=== PATIENT | female | born 1930 | race Caucasian/White ===

== ENCOUNTER 2017-10-24 06:43 | Outpatient (CLI) | payer MEDICARE, OTHER | END 2017-10-24 06:44 | disposition critical access hospital (66) | LOC: EMS 06:43 | PROVIDERS: ATTEND Surgery | DX: M54.2 Cervicalgia (principal) | CPT/HCPCS: A0425; A0429 ==

== ENCOUNTER 2017-10-24 07:06 | Emergency (ER) | payer MEDICARE, OTHER ==
[2017-10-24 07:15] VITALS: BP 161/138
[2017-10-24] MEDS ORDERED: SODIUM CHLORIDE 0.9% 1,000 ML IV ONE (07:31)
--- NOTE | 2017-10-24 07:35 | ED Physician Documentation ---
PD HPI Fall - Stated complaint Stated Complaint: GLF - Chief complaint Chief Complaint: General - History obtained from History obtained from: Patient, Family (daughter), EMS - History of Present Illness Mechanism of injury: Lost balance Fall distance: Sitting position Where injury occurred: Home Timing - onset: Last night Injury(ies) location: Face, Right Upper Extremity, Right Lower Extremity Associated symptoms: No: LOC - Additional information Additional information: The patient is a 87-year-old female who arrives via ambulance after being found by a passerby this morning lying on the ground. She had walked to her mailbox last night using her cane, and fell when walking back to the house. She was unable to get up and spent the night laying in the bushes. She complains of pain in her right leg. She states that she was not able to move her right arm earlier in the night. She denies headache, chest pain, shortness of breath, abdominal pain. She has a history of imbalance, with previous history of falls. She and her , who has dementia, were scheduled to move into an adult care facility, [facility]. Review of Systems Constitutional: denies: Fever Eyes: denies: Loss of vision Ears: denies: Tinnitus/ringing Nose: denies: Congestion Throat: denies: Sore throat Cardiac: denies: Chest pain / pressure Respiratory: denies: Dyspnea, Cough GI: denies: Abdominal Pain, Nausea, Vomiting : reports: Incontinent. denies: Dysuria Skin: reports: Abrasion (s) Musculoskeletal: reports: Extremity pain (right leg). denies: Back pain Neurologic: reports: Generalized weakness. denies: Focal weakness, Numbness PD PAST MEDICAL HISTORY - Past Medical History Cardiovascular: Murmur Respiratory: None Neuro: Other (Normo-pressure hydrocephalus, S/P FURNITURE SHAMPOOER shunt.) Endocrine/Autoimmune: None GI: None : None HEENT: None Psych: None Musculoskeletal: Osteoarthritis Derm: None - Past Surgical History Past Surgical History: Yes General: Cholecystectomy, Appendectomy Ortho: Knee replacement Neuro: FURNITURE SHAMPOOER shunt - Present Medications Home Medications: Ambulatory Orders Medication Instructions Recorded Confirmed Aspirin 81 mg PO 08/02/12 08/02/12 Atenolol mg PO 08/02/12 08/02/12 Clopidogrel [Plavix] 75 mg PO DAILY 08/02/12 08/02/12 Lovastatin mg PO 08/02/12 08/02/12 Tolterodine [Detrol LA] mg PO ONCE 08/02/12 08/02/12 Clotrimazole 45 gm TP BID #1 cream..g. 10/24/17 - Allergies Allergies/Adverse Reactions: Allergies Allergy/AdvReac Type Severity Reaction Status Date / Time acetaminophen [From Percocet] Allergy Intermediate Nausea Verified 12/09/12 13: 08 oxycodone HCl * Allergy Intermediate Nausea Verified 12/09/12 13:08 [From Percocet] - Living Situation Living Situation: reports: With spouse/s.o. Living Arrangement: reports: At home - Social History Does the pt smoke?: No Smoking Status: Never smoker Does the pt drink ETOH?: Yes Does the pt have substance abuse?: No - Immunizations Immunizations are current?: No Immunizations: TDAP >10years/unknown - POLST Patient has POLST: Yes PD ED PE NORMAL - Vitals Vital signs reviewed: Yes (hypertensive) - General General: Alert and oriented X 3, Well developed/nourished, Other (Appears disheveled) - HEENT HEENT: PERRL, EOMI, Other (Right periorbital ecchymosis, dry buccal mucosa.) - Neck Neck: No bony TTP, Other (Mild discomfort with cervical range of motion.) - Cardiac Cardiac: RRR, Other (II/ systolic murmur.) - Respiratory Respiratory: No respiratory distress, Clear bilaterally - Abdomen Abdomen: Soft, Non tender - Back Back: No CVA TTP, No spinal TTP - Extremities Extremities: No edema, No calf tenderness / cord, Other (superficial ecchymosis of both knees, lower legs, extensor aspects of forearms, with abrasion right elbow posteriorly.) - Neuro Neuro: Alert and oriented X 3, No motor deficit, No sensory deficit, Other ( Hearing deficit; Mental confusion/forgetfulness for recent events.) Results - Vitals Vitals: Oxygen O2 Source Room air - Labs Labs: Laboratory Tests 10/24/17 10/24/17 10/24/17 07:40 07:40 07:40 WBC 15.3 H RBC 4.46 Hgb 13.7 Hct 40.3 MCV 90.2 MCH 30.7 MCHC 34.1 RDW 14.2 Plt Count 188 MPV 8.7 Neut # (Auto) 14.0 H Lymph # (Auto) 0.7 L [place] # (Auto) 0.5 Eos # (Auto) 0.0 Baso # (Auto) 0.0 Absolute Nucleated RBC 0.00 Nucleated RBC % 0.0 Sodium 136 Potassium 3.9 Chloride 102 Carbon Dioxide 22 Anion Gap 12.0 BUN 31 H Creatinine 1.3 H Estimated GFR (MDRD) 39 L Glucose 120 H Lactic Acid Calcium 8.8 Total Bilirubin 1.2 H AST 33 ALT 18 Alkaline Phosphatase 58 Troponin I 0.19 Total Protein 7.5 Albumin 4.2 Globulin 3.3 Albumin/Globulin Ratio 1.3 Lipase 38 Urine Color Urine Clarity Urine pH Ur Specific [place] Urine Protein Urine Glucose (UA) Urine Ketones Urine Occult Blood Urine Nitrite Urine Bilirubin Urine Urobilinogen Ur Leukocyte Esterase Urine RBC Urine WBC Ur Squamous Epith Cells Urine Bacteria Ur Microscopic Review Urine Culture Comments 10/24/17 10/24/17 07:40 08:30 WBC RBC Hgb Hct MCV MCH MCHC RDW Plt Count MPV Neut # (Auto) Lymph # (Auto) Bibb # (Auto) Eos # (Auto) Baso # (Auto) Absolute Nucleated RBC Nucleated RBC % Sodium Potassium Chloride Carbon Dioxide Anion Gap BUN Creatinine Estimated GFR (MDRD) Glucose Lactic Acid 1.6 Calcium Total Bilirubin AST ALT Alkaline Phosphatase Troponin I Total Protein Albumin Globulin Albumin/Globulin Ratio Lipase Urine Color YELLOW Urine Clarity SL. CLOUDY Urine pH 6.5 Ur Specific [place] 1.025 Urine Protein 100 H Urine Glucose (UA) NEGATIVE Urine Ketones TRACE Urine Occult Blood MODERATE H Urine Nitrite POSITIVE H Urine Bilirubin NEGATIVE Urine Urobilinogen 0.2 (NORMAL) Ur Leukocyte Esterase NEGATIVE Urine RBC 0-5 Urine WBC 4-5 Ur Squamous Epith Cells MOD Squamous H Urine Bacteria Many H Ur Microscopic Review INDICATED Urine Culture Comments NOT INDICATED - Rads (name of study) Head CT w/o Radiology: Prelim report reviewed, EMP read contemporaneously, See rad report ( No acute intracranial abnormality. Stable FURNITURE SHAMPOOER shunt with interval decrease in ventriculomegaly.) C-spine CT Radiology: Prelim report reviewed, EMP read contemporaneously, See rad report ( Negative.) PD MEDICAL DECISION MAKING - ED course Complexity details: reviewed old records, reviewed results, re-evaluated patient , considered differential, d/w patient, d/w family ED course: The patient's presentation is most consistent with fall caused by incoordination when walking outside in the dark.. Injuries include contusion to the right side of the face, the right upper extremity, and both lower extremities. There are no fractures or intracranial abnormalities evident on CT scan or physical examination. The underlying cause of the patient's fall appears to be most likely due to incoordination rather than acute neurologic or cardiac event. Her laboratory evaluation reveals an elevated white count of 15.3, but there is no other clinical evidence to suggest infectious etiology, other than intertriginous dermatitis. The elevated white count is likely a result of soft tissue trauma. Treatment in the emergency department included administration of normal saline 1 L IV. Chlortrimazole topical cream was applied to the fungal dermatitis in the groin. She is being discharged with prescription for Chlortrimazole cream. I discussed with her and her daughter the results of her evaluation, symptomatic treatment and outpatient follow-up, as well as potentially worrisome signs or symptoms that should prompt reevaluation in the emergency department. She is being discharged to the adult care facility, accompanied by her daughter. She demonstrated ability to ambulate with the assistance of a walker, without apparent extremity pain with weightbearing. - Sepsis Event Vital Signs: Oxygen O2 Source Room air Departure - Departure Disposition: 01 Home, Self Care Clinical Impression: Multiple contusions, Dehydration, Incoordination, Fungal dermatitis Fall Qualifiers: Encounter type: initial encounter Qualified Code(s): W19.XXXA - Unspecified fall, initial encounter Condition: Stable Instructions: ED Contusion Soft Tissue, ED Dehydration Follow-Up: Fredi Cohen MD [Primary Care Provider] - Prescriptions: Clotrimazole 45 gm TP BID #1 cream..g. Comments: Drink plenty of fluids. Apply antifungal cream to the groin area twice daily. You can use Tylenol if needed for discomfort. Follow up with your primary physician within 1-2 weeks. Call to schedule an appointment. Return to the emergency department if you develop markedly increasing pain, increasing difficulty walking, or otherwise worsening symptoms. Discharge Date/Time: 10/24/17 10:58
[2017-10-24 07:49] LABS: BASOPHILS % (AUTO) 0.2 %; EOSINOPHILS % (AUTO) 0.1 %; HGB - HEMOGLOBIN 13.7 g/dL (12.0-16.0); LYMPHOCYTES # (AUTO) 0.7 10^3/uL (1.5-3.5); LYMPHOCYTES % (AUTO) 4.8 %; MEAN CORPUSCULAR HEMOGLOBIN 30.7 pg (27.0-31.0); MEAN CORPUSCULAR HGB CONC 34.1 g/dL (32.0-36.0); MEAN CORPUSCULAR VOLUME 90.2 fL (81.0-99.0); MEAN PLATELET VOLUME 8.7 fL (7.9-10.8); MONOCYTES # (AUTO) 0.5 10^3/uL (0.0-1.0); MONOCYTES % (AUTO) 3.3 %; NEUTROPHILS % (AUTO) 91.6 %; PLT - PLATELET COUNT 188 10^3/uL (130-450); RED BLOOD COUNT 4.46 10^6/uL (4.20-5.40); RED CELL DISTRIBUTION WIDTH 14.2 % (12.0-15.0); WHITE BLOOD COUNT 15.3 x10^3/uL (4.8-10.8)
[2017-10-24 08:05] LABS: ALBUMIN 4.2 g/dL (3.2-5.5); ALBUMIN/GLOBULIN RATIO 1.3 (1.0-2.2); BILIRUBIN,TOTAL 1.2 mg/dL (0.2-1.0); CALCIUM 8.8 mg/dL (8.5-10.3); CREATININE 1.3 mg/dL (0.4-1.0); TOTAL PROTEIN 7.5 g/dL (6.7-8.2)
[2017-10-24 08:36] LABS: BILIRUBIN,URINE NEGATIVE (NEGATIVE); GLUCOSE, URINE (UA) NEGATIVE (NEGATIVE); KETONES,URINE (UA) TRACE mg/dL (NEGATIVE); LEUKOCYTE ESTERASE, URINE NEGATIVE (NEGATIVE); NITRITE,URINE POSITIVE (NEGATIVE); OCCULT BLOOD,URINE MODERATE (NEGATIVE); PH,URINE 6.5 PH (5.0-7.5); PROTEIN,URINE 100 mg/dL (NEGATIVE); UROBILINOGEN,URINE 0.2 (NORMAL) E.U./dL (NORMAL)
[2017-10-24 08:43] LABS: CLARITY,URINE SL. CLOUDY (CLEAR)
[2017-10-24 08:44] LABS: BACTERIA,URINE Many /HPF (None Seen); RBC,URINE 0-5 /HPF (0-5); SQUAMOUS EPITHELIAL CELL,UR MOD Squamous (<= Few)
--- NOTE | 2017-10-24 09:04 | CT Report ---
Reason: Fall with head injury Procedure Date: 10/24/2017 Accession Number: [id number] / [id number] Procedure: CT - Head W/O CPT Code: FULL RESULT: EXAM: CT HEAD WITHOUT CONTRAST CT SCAN OF THE CERVICAL SPINE WITHOUT CONTRAST. EXAM DATE: 10/24/2017 08:03 AM. CLINICAL HISTORY: Fall with head injury, neck pain. COMPARISON: Noncontrast CT head 08/04/2012. Noncontrast CT cervical spine 08/02/2012. TECHNIQUE: Noncontrast axial sections through the head and cervical spine. Reformats: Sagittal and coronal of the head, coronal and sagittal of the cervical spine. In accordance with CT protocol optimization, one or more of the following dose reduction techniques were utilized for this exam: automated exposure control, adjustment of mA and/or KV based on patient size, or use of iterative reconstructive technique. FINDINGS CT HEAD: Parenchyma: No intraparenchymal hemorrhage. No evidence of mass, midline shift, or CT findings of infarction. Sanchez-white differentiation is distinct. Extraaxial Spaces: Normal for age. No subdural or epidural collections identified. Ventricles: Decreased ventriculomegaly compared to 2013 with stable appearance of the BIOCHEMICAL ENGINEER shunt. Sinuses and orbits: Imaged paranasal sinuses, orbits, and mastoids show no significant abnormality. Bones: No evidence of fracture or calvarial defect. Stable bifrontal craniotomy changes, remote. Other: Soft tissue trauma to the right periorbital region extracranially. FINDINGS CT CERVICAL SPINE: Alignment: Normal. No scoliosis or spondylolisthesis. Bones: No fracture or bone lesion. Atlantooccipital relationship is preserved. Interspace Levels/Facets: C1-C2: Mild to moderate degenerative changes. C2-C3: Mild to moderate degenerative changes. C3-C4: Advanced degenerative changes including complete loss of joint space and osteophyte formation. C4-C5: Disk/osteophyte complex formation and complete loss of joint space height. C5-C6: Moderate degenerative changes. C6-C7: Near-complete loss of joint space height with disk/osteophyte complex formation. C7-T1: Unremarkable. Spinal Canal: Atraumatic. Musculature: Atraumatic. Other: The paravertebral and prevertebral soft tissues are unremarkable. The lung apices are clear. IMPRESSION: Head CT: No acute intracranial abnormality. Stable BIOCHEMICAL ENGINEER shunt with interval decrease in ventriculomegaly. Extracranial soft tissue swelling. Cervical Spine CT: Negative. RADIA
--- NOTE | 2017-10-24 09:04 | CT Report ---
Reason: Fall with head injury, neck pain. Procedure Date: 10/24/2017 Accession Number: [id number] / [id number] Procedure: CT - Cervical Spine W/O CPT Code: FULL RESULT: EXAM: CT HEAD WITHOUT CONTRAST CT SCAN OF THE CERVICAL SPINE WITHOUT CONTRAST. EXAM DATE: 10/24/2017 08:03 AM. CLINICAL HISTORY: Fall with head injury, neck pain. COMPARISON: Noncontrast CT head 08/04/2012. Noncontrast CT cervical spine 08/02/2012. TECHNIQUE: Noncontrast axial sections through the head and cervical spine. Reformats: Sagittal and coronal of the head, coronal and sagittal of the cervical spine. In accordance with CT protocol optimization, one or more of the following dose reduction techniques were utilized for this exam: automated exposure control, adjustment of mA and/or KV based on patient size, or use of iterative reconstructive technique. FINDINGS CT HEAD: Parenchyma: No intraparenchymal hemorrhage. No evidence of mass, midline shift, or CT findings of infarction. Sanchez-white differentiation is distinct. Extraaxial Spaces: Normal for age. No subdural or epidural collections identified. Ventricles: Decreased ventriculomegaly compared to 2012 with stable appearance of the EQUIPMENT ASSOCIATE shunt. Sinuses and orbits: Imaged paranasal sinuses, orbits, and mastoids show no significant abnormality. Bones: No evidence of fracture or calvarial defect. Stable bifrontal craniotomy changes, remote. Other: Soft tissue trauma to the right periorbital region extracranially. FINDINGS CT CERVICAL SPINE: Alignment: Normal. No scoliosis or spondylolisthesis. Bones: No fracture or bone lesion. Atlantooccipital relationship is preserved. Interspace Levels/Facets: C1-C2: Mild to moderate degenerative changes. C2-C3: Mild to moderate degenerative changes. C3-C4: Advanced degenerative changes including complete loss of joint space and osteophyte formation. C4-C5: Disk/osteophyte complex formation and complete loss of joint space height. C5-C6: Moderate degenerative changes. C6-C7: Near-complete loss of joint space height with disk/osteophyte complex formation. C7-T1: Unremarkable. Spinal Canal: Atraumatic. Musculature: Atraumatic. Other: The paravertebral and prevertebral soft tissues are unremarkable. The lung apices are clear. IMPRESSION: Head CT: No acute intracranial abnormality. Stable EQUIPMENT ASSOCIATE shunt with interval decrease in ventriculomegaly. Extracranial soft tissue swelling. Cervical Spine CT: Negative. RADIA
[2017-10-24] MEDS ORDERED: CLOTRIMAZOLE 1% CREAM 15 GM TUBE TOP SCH (10:00)
== END 2017-10-24 10:58 | disposition home or self-care (01) ==
LOC: EDUNIT# → ED 07:06
DX: S00.83XA Contusion of other part of head, initial encounter (principal); S40.021A Contusion of right upper arm, initial encounter; S80.12XA Contusion of left lower leg, initial encounter; S80.11XA Contusion of right lower leg, initial encounter; W18.39XA Other fall on same level, initial encounter; Z91.81 History of falling; Y93.01 Activity, walking, marching and hiking; Y92.008 Other place in unspecified non-institutional (private) residence as the place of occurrence of the external cause
CPT/HCPCS: 36415; 70450; 72125; 80053; 81001; 83605; 83690; 84484; 85025; 96360; 99283; 99284; A9270; 81003; 87086

== ENCOUNTER 2018-02-15 09:17 | Outpatient (CLI) | payer MEDICARE, OTHER | END 2018-02-15 09:18 | disposition critical access hospital (66) | LOC: EMS 09:17 | PROVIDERS: ATTEND Surgery | DX: R53.1 Weakness (principal); R47.89 Other speech disturbances | CPT/HCPCS: A0425; A0429 ==

== ENCOUNTER 2018-02-15 09:34 | Inpatient (IN) | payer MEDICARE, OTHER ==
[2018-02-15] MEDS ORDERED: SODIUM CHLORIDE 0.9% 1,000 ML IV ONE (09:51)
--- NOTE | 2018-02-15 09:54 | ED Physician Documentation ---
PD HPI FOCAL NEURO - Stated complaint Stated Complaint: STROKE - Chief complaint Chief Complaint: Neuro - History obtained from History obtained from: Patient, EMS - History of Present Illness Timing - onset: Unknown Timing - duration: Hours Time of symptom onset unknown: Time of onset unknown Severity of deficit: Severe Weakness: Face, Arm, Hand, Leg, Foot, Right Contributing factors: positive: Vascular dz, Other (PLANTING MACHINE CREWMAN shunt for NPH) Baseline status: positive: A&OX3, ambulatory, indep Similar symptoms before: Diagnosis (CVA) Recently seen: Not recently seen - Additional information Additional information: 87-year-old female who is moved into assisted living in September of this year was in her usual state of good health this past week according to her daughter. She was last seen normal last night at supper in the assisted living facility and this morning she was found on the ground not responding. She does have her eyes opened she is aphasic and does follow commands. Review of Systems Constitutional: denies: Fever Eyes: denies: Decreased vision Ears: denies: Ear pain Nose: denies: Congestion Throat: denies: Sore throat Cardiac: denies: Chest pain / pressure, Palpitations Respiratory: denies: Dyspnea, Cough GI: denies: Abdominal Pain, Nausea, Vomiting : denies: Dysuria Skin: denies: Rash Musculoskeletal: reports: Extremity swelling (left leg is swollen). denies: Neck pain, Back pain, Extremity pain Neurologic: denies: Generalized weakness, Focal weakness, Numbness PD PAST MEDICAL HISTORY - Past Medical History Cardiovascular: Murmur Respiratory: None Neuro: Other (Normo-pressure hydrocephalus, S/P PLANTING MACHINE CREWMAN shunt.) Endocrine/Autoimmune: None GI: None : None HEENT: None Psych: None Musculoskeletal: Osteoarthritis Derm: None - Past Surgical History Past Surgical History: Yes General: Cholecystectomy, Appendectomy Ortho: Knee replacement Neuro: PLANTING MACHINE CREWMAN shunt - Present Medications Home Medications: Ambulatory Orders Medication Instructions Recorded Confirmed Tolterodine [Detrol LA] 4 mg PO DAILY 08/02/12 02/15/18 Oxybutynin [Ditropan] 5 mg PO BID 02/15/18 02/15/18 RX: Furosemide 40 mg PO DAILY 02/15/18 02/15/18 RX: Lovastatin 40 mg PO QPM 02/15/18 02/15/18 - Allergies Allergies/Adverse Reactions: Allergies Allergy/AdvReac Type Severity Reaction Status Date / Time acetaminophen [From Percocet] Allergy Intermediate Nausea Verified 12/09/12 13:08 oxycodone HCl * Allergy Intermediate Nausea Verified 12/09/12 13:08 [From Percocet] - Social History Does the pt smoke?: No Smoking Status: Never smoker Does the pt drink ETOH?: Yes Does the pt have substance abuse?: No - Immunizations Immunizations are current?: No Immunizations: TDAP >10years/unknown - POLST Patient has POLST: Yes PD ED PE NORMAL - Vitals Vital signs reviewed: Yes (hypertensive ) - General General: No acute distress, Well developed/nourished, Other (alert and interactive but non-verbal. Follows commands. obvious right facial droop sparing the forehead. ) - HEENT HEENT: Atraumatic, PERRL, EOMI - Neck Neck: Supple, no meningeal sign, No bony TTP - Cardiac Cardiac: RRR, Other (2/6 holosystolic blowing murmer consistent with aortic stenosis) - Respiratory Respiratory: No respiratory distress, Clear bilaterally - Abdomen Abdomen: Soft, Non tender - Back Back: No CVA TTP, No spinal TTP - Derm Derm: Normal color, Warm and dry, No rash - Extremities Extremities: No deformity, Other (There is trace edema to the left LE without obvious erythema. There is a healing wound to the left lateral ankle ) - Neuro Neuro: Other (The patient follows commands has an obvious right facial droop sparing the forehead and she has weakness on the right side with slate cutter. She is able to hold the right leg up longer than the swollen left leg. ) Eye Opening: Spontaneous Motor: Obeys Commands Verbal: Incomprehensible GCS Score: 12 - Psych Psych: Normal mood, Normal affect NIHSS - Time Time: 09:43 - Level of Consciousness Level of consciousness: (0) Alert, Keenly responsive LOC Questions: (0) Answers both Q's correct LOC Commands: (0) Performs both correctly - Gaze Best Gaze: (0) Normal - Visual Visual: (0) No loss - Facial Palsy Facial Palsy: (2) Partial paralysis - Motor Arms (both separate) Motor Arm (right): (1) Drift Motor Arm (left): (0) No drift - Motor Legs (both separate) Motor Leg (right): (1) Drift Motor Leg (left): (1) Drift - Limb Ataxia Limb Ataxia: (1) Present in 1 limb - Sensory Sensory: (0) Normal - Best Language Best Language: (3) Mute, global aphasia - Dysarthria Dysarthria: (2) Severe dysarthria - Extinction and Inattention (formally neg Extinction and inattention: (1) Visual,tactile,auditory,spatial, or personal inattention - Total Score/Results Total Score/Result: 12 Results - Vitals Vitals: Vital Signs - 24 hr 02/15/18 02/15/18 02/15/18 09:36 10:24 11:17 Temperature 36 C L Heart Rate 96 96 99 Respiratory 14 16 19 Rate Blood Pressure 158/89 H 155/94 H 163/80 H O2 Saturation 99 100 95 02/15/18 12:40 Temperature 36.3 C L Heart Rate 98 Respiratory 16 Rate Blood Pressure 154/81 H O2 Saturation 97 Oxygen O2 Source Room air - EKG (time done) 1024 Rate: Rate (enter#) (95) Rhythm: NSR [place]: LAD Other comments: Other comments (early transition) Compare to prior EKG: Changed from prior EKG (SPT 08-02-12 rate has increased.) Computer interpretation: Agree with computer - Labs Labs: Laboratory Tests 02/15/18 02/15/18 02/15/18 09:45 09:45 09:45 WBC 16.3 H RBC 4.13 L Hgb 12.1 Hct 36.2 L MCV 87.7 MCH 29.3 MCHC 33.4 RDW 14.6 Plt Count 202 MPV 8.2 Neut # (Auto) 14.6 H Lymph # (Auto) 0.9 L [place] # (Auto) 0.7 Eos # (Auto) 0.0 Baso # (Auto) 0.1 Absolute Nucleated RBC 0.01 Nucleated RBC % 0.0 Sodium 138 Potassium 3.9 Chloride 102 Carbon Dioxide 26 Anion Gap 10.0 BUN 38 H Creatinine 1.5 H Estimated GFR (MDRD) 33 L Glucose 107 H Lactic Acid Calcium 8.9 Total Bilirubin 0.6 AST 17 ALT 14 Alkaline Phosphatase 79 Troponin I 0.85 H* Total Protein 7.5 Albumin 4.0 Globulin 3.5 Albumin/Globulin Ratio 1.1 Lipase 42 Urine Color Urine Clarity Urine pH Ur Specific [place] Urine Protein Urine Glucose (UA) Urine Ketones Urine Occult Blood Urine Nitrite Urine Bilirubin Urine Urobilinogen Ur Leukocyte Esterase Ur Microscopic Review Urine Culture Comments 02/15/18 02/15/18 02/15/18 09:58 10:10 12:23 WBC RBC Hgb Hct MCV MCH MCHC RDW Plt Count MPV Neut # (Auto) Lymph # (Auto) [place] # (Auto) Eos # (Auto) Baso # (Auto) Absolute Nucleated RBC Nucleated RBC % Sodium Potassium Chloride Carbon Dioxide Anion Gap BUN Creatinine Estimated GFR (MDRD) Glucose Lactic Acid 0.9 Calcium Total Bilirubin AST ALT Alkaline Phosphatase Troponin I 0.95 H* Total Protein Albumin Globulin Albumin/Globulin Ratio Lipase Urine Color YELLOW Urine Clarity CLEAR Urine pH 6.5 Ur Specific Ram[place] 1.015 Urine Protein NEGATIVE Urine Glucose (UA) NEGATIVE Urine Ketones NEGATIVE Urine Occult Blood NEGATIVE Urine Nitrite NEGATIVE Urine Bilirubin NEGATIVE Urine Urobilinogen 0.2 (NORMAL) Ur Leukocyte Esterase NEGATIVE Ur Microscopic Review NOT INDICATED Urine Culture Comments NOT INDICATED - Rads (name of study) CT head without Radiology: Prelim report reviewed (Impression: 1. Generalized age-related cortical atrophic changes without evidence of intracranial abnormality. If concern for infarctions persist, MRI could be obtained for additional evaluation. 2. Stable position of ventricular catheter with stable dilation of the ventricles.), EMP read indepedently, See rad report CTA head and neck Radiology: Prelim report reviewed (There is no evidence of large vessel occlusion. Please see the report for significant details.), EMP read indepedently, See rad report Procedures - IVC sono (time) 0900 Bedside IVC sono: IVC measures (cm) (0.83), Dehydration (est 1-2 liter deficit) PD MEDICAL DECISION MAKING - ED course Complexity details: reviewed old records, reviewed results, re-evaluated patient, considered differential, d/w patient, d/w family ED course: 87 y/o female with a history of aortic stenosis was found with decreased responsiveness this morning and she is transported to the hospital with receptive aphasia and weakness on the right side with dense facial palsy weak slate cutter and better strength on the right than the left on exam. She has a history of aortic stenosis and appears dehydrated on interrogation of the IVC. Saline is begun. CT of the head is without signs of hemorrhage and there is no large vessel occlusion. The patient does have some improvement with ID had IV hydration and she is able to make 3 words. She does appear to have some left neglect. She has a dense facial paresthesias and expressive a aphasia. She has an elevated troponin. A conversation with the patient's daughter indicates she does not want heroic measures to prolong life in these circumstances. She will need evaluation for swallowing and ability to feed herself. We have discussed end of life as a possible outcome and the daughter indicates she would prefer to keep her here. Departure - Departure Disposition: 66 [facility] DC/Xfer Clinical Impression: Dehydration, NSTEMI (non-ST elevated myocardial infarction) Cerebrovascular accident (CVA) Qualifiers: CVA mechanism: unspecified Qualified Code(s): I63.9 - Cerebral infarction, unspecified Condition: Poor Discharge Date/Time: 02/15/18 14:19
[2018-02-15 09:58] LABS: BASOPHILS # (AUTO) 0.1 10^3/uL (0.0-0.1); BASOPHILS % (AUTO) 0.3 %; EOSINOPHILS % (AUTO) 0.3 %; HGB - HEMOGLOBIN 12.1 g/dL (12.0-16.0); LYMPHOCYTES # (AUTO) 0.9 10^3/uL (1.5-3.5); LYMPHOCYTES % (AUTO) 5.5 %; MEAN CORPUSCULAR HEMOGLOBIN 29.3 pg (27.0-31.0); MEAN CORPUSCULAR HGB CONC 33.4 g/dL (32.0-36.0); MEAN CORPUSCULAR VOLUME 87.7 fL (81.0-99.0); MEAN PLATELET VOLUME 8.2 fL (7.9-10.8); MONOCYTES # (AUTO) 0.7 10^3/uL (0.0-1.0); MONOCYTES % (AUTO) 4.1 %; NEUTROPHILS # (AUTO) 14.6 10^3/uL (1.5-6.6); NEUTROPHILS % (AUTO) 89.8 %; PLT - PLATELET COUNT 202 10^3/uL (130-450); RED BLOOD COUNT 4.13 10^6/uL (4.20-5.40); RED CELL DISTRIBUTION WIDTH 14.6 % (12.0-15.0); WHITE BLOOD COUNT 16.3 x10^3/uL (4.8-10.8)
[2018-02-15] MEDS ORDERED: IOVERSOL 320 100 ML VIAL IVP ONE ×3 (10:02→11:52)
[2018-02-15 10:08] LABS: ALBUMIN/GLOBULIN RATIO 1.1 (1.0-2.2); BILIRUBIN,TOTAL 0.6 mg/dL (0.2-1.0); CALCIUM 8.9 mg/dL (8.5-10.3); CREATININE 1.5 mg/dL (0.4-1.0); TOTAL PROTEIN 7.5 g/dL (6.7-8.2)
[2018-02-15 10:17] LABS: BILIRUBIN,URINE NEGATIVE (NEGATIVE); GLUCOSE, URINE (UA) NEGATIVE (NEGATIVE); KETONES,URINE (UA) NEGATIVE (NEGATIVE); LEUKOCYTE ESTERASE, URINE NEGATIVE (NEGATIVE); NITRITE,URINE NEGATIVE (NEGATIVE); OCCULT BLOOD,URINE NEGATIVE (NEGATIVE); PH,URINE 6.5 PH (5.0-7.5); PROTEIN,URINE NEGATIVE (NEGATIVE); UROBILINOGEN,URINE 0.2 (NORMAL) E.U./dL (NORMAL)
[2018-02-15 10:19] LABS: CLARITY,URINE CLEAR (CLEAR)
--- NOTE | 2018-02-15 11:28 | CT Report ---
Reason: R brent/aphasia Procedure Date: 02/15/2018 Accession Number: [id number] / [id number] Procedure: CT - Head W/O CPT Code: FULL RESULT: EXAM: CT HEAD EXAM DATE: 02/15/2018 11:00 AM. CLINICAL HISTORY: R brent/aphasia. COMPARISON: 02/15/2018. TECHNIQUE: Multiaxial CT images were obtained from the foramen magnum to the vertex. Reformats: Sagittal and coronal. IV contrast: None. In accordance with CT protocol optimization, one or more of the following dose reduction techniques were utilized for this exam: automated exposure control, adjustment of mA and/or KV based on patient size, or use of iterative reconstructive technique. FINDINGS: Parenchyma: No intraparenchymal hemorrhage. No evidence of mass, midline shift, or CT findings of acute infarction. Sanchez-white differentiation is distinct. Diffuse chronic microangiopathic white matter changes are evident. Vascular calcifications in the visualized vertebral arteries and bilateral M1 segments appears unchanged compared to prior. Extraaxial Spaces: Normal for age. No subdural or epidural collections identified. Ventricles: Persistent dilation of the lateral, third, and fourth ventricles, unchanged compared to prior. For example, the third ventricle measures 17 mm width, unchanged. Ventricular dilation is somewhat out of proportion to sulcal dilation which suggests underlying normal pressure hydrocephalus. Stable position of the right parietal approach ventricular catheter. Sinuses and orbits: Imaged paranasal sinuses, orbits, and mastoids show no significant abnormality. Bones: No evidence of fracture or calvarial defect. Other: None. IMPRESSION: 1. Generalized age-related cortical atrophic changes without evidence of acute intracranial abnormality. If concern for infarction persists, MRI could be obtained for additional evaluation. 2. Stable position of ventricular catheter with stable dilation of the ventricles. [facility]
--- NOTE | 2018-02-15 12:12 | CT Report ---
Reason: right brent/aphasia Procedure Date: 02/15/2018 Accession Number: [id number] / [id number] Procedure: CT - Head Angio CPT Code: FULL RESULT: EXAM: CT ANGIOGRAM HEAD AND NECK. CT SCAN HEAD WITH CONTRAST. EXAM DATE:02/15/2018 11:00 AM. CLINICAL HISTORY:R brent/aphasia. COMPARISON:None. TECHNIQUE: Routine axial helical CTA imaging was performed from the aortic arch through the [place] of [place]. Routine axial CT imaging of the head was performed prior to and following contrast administration. Reconstructions: Routine multiplanar 3D MIP reconstructions. IV contrast: 80 mL Optiray 320. NASCET Criteria are used for stenosis measurements. In accordance with CT protocol optimization, one or more of the following dose reduction techniques were utilized for this exam: automated exposure control, adjustment of mA and/or KV based on patient size, or use of iterative reconstructive technique. FINDINGS: CT scan of the head with contrast: The patient's head is rotated to the left. The imaged portions of the orbits are normal in appearance. The images are degraded by motion. There is a ventriculostomy catheter entering through a right temporal approach with the tip extending through the septum pellucidum into the body of the left lateral ventricle. The ventriculostomy catheter is in unchanged position. There is unchanged ventriculomegaly. The transverse dimension of the frontal horns of the lateral ventricles is 52 mm. There are periventricular, subcortical, and deep white matter hypodensities consistent with a mild degree of chronic small-vessel ischemia. There is a small focus of encephalomalacia of the left cerebellar hemisphere. There is normal enhancement within the brain parenchyma. There is normal enhancement within the deep venous sinuses. CTA of the neck: The visualized portions of the lung apices are clear. There is a normal configuration of the aortic arch. There are multilevel moderate degenerative changes of the cervical spine. There is beam-hardening artifact from the patient's dental amalgam and or dental hardware obscuring portions of the oropharynx, nasopharynx, oral cavity, registration representative and parotid spaces, tongue and tongue base. There is fluid density within a few right mastoid air cells. The left mastoid air cells are normally aerated. The imaged portions of the orbits are normal in appearance. The openings of the eustachian tubes are normally aerated. The torus tubarius are symmetric. The fossa of Rosenmuller are normally aerated bilaterally. The right and left parotid spaces enhance symmetrically. The registration representative spaces exhibit symmetric densities. The bilateral parapharyngeal spaces exhibit normal fat densities. The extrinsic and the intrinsic muscles of the tongue exhibit symmetric densities. There is no significant adenopathy in the level IA angel chain. There is no significant adenopathy within the bilateral level IB angel chains. The free and fixed margins of the epiglottis are normal in appearance. The preepiglottic space and paraglottic spaces exhibit normal fat densities. The aryepiglottic folds and pyriform sinuses are symmetric. The false and true cords are normal in appearance. The subglottic space is normal. There is an enhancing lesion of the left thyroid lobe measuring 17 mm in the long axis (114, 2). This could be further characterized as an outpatient with thyroid ultrasound. It could represent benign or neoplastic etiologies. There is calcific plaquing present at the origin and proximal left subclavian artery producing up to a 25% stenosis. There is soft and calcific plaquing of the right carotid bifurcation but without flow-limiting stenosis using NASCET criteria. The extracranial right internal carotid artery is without flow-limiting stenosis. There is soft and calcific plaquing of the distal left common carotid artery, carotid bulb and proximal extracranial left internal carotid artery producing multiple stenoses measuring up to 40-50% using NASCET criteria. There is soft and calcific plaquing within the right V1 segment of the right vertebral artery producing up to a 50% stenosis. There are multiple mild stenoses within the right V2 segment of the right vertebral artery measuring approximately 25%. There is abrupt tapering of the distal right V3 segment of the right vertebral artery near the junction with the right V4 segment. There is loss of enhancement within the right vertebral artery intradural segment throughout its course consistent with thrombosis. This may reflect a chronic finding. However, acute thrombosis is not excluded. Recommend correlation. A well-defined right posterior inferior cerebellar artery is not identified and may be thrombosed. There is a normal appearance of the right anterior inferior cerebellar artery. There is a small left anterior inferior cerebellar artery. There is soft and calcific plaquing of the left vertebral artery intradural segment producing multiple stenoses measuring between 25-40%. The left posterior inferior cerebellar artery exhibits multiple stenoses measuring approximately 25%. The basilar artery is without flow-limiting stenosis. The right superior cerebral artery is without flow-limiting stenosis. There is narrowing suggested at the origin of the left superior cerebral artery producing approximately 50% stenosis. The left P1 and P2 segments of the left posterior cerebral artery are without flow-limiting stenosis. The right P1 and P2 segments of the right posterior cerebral artery are without flow-limiting stenosis. There is dense calcific plaquing of the cavernous and supraclinoid intracranial internal carotid arteries bilaterally producing multiple stenoses measuring between 25-50% bilaterally. The right M1 and proximal M2 segments of the right middle cerebral artery are smooth and nonstenotic. There is calcific plaquing of the left M1 segment of the left middle cerebral artery producing a 25-50% stenosis. There is a punctate focus of calcific plaquing of branch of the left middle cerebral artery producing a 50% to slightly greater stenosis. The left A1 segment is smooth and nonstenotic. The right A1 segment is not visualized and may be severely hypoplastic versus aplastic. There is a normal appearance of the anterior communicating artery. There is narrowing within the proximal left A2 segment of the left anterior cerebral artery producing up to a 50% stenosis. There is a punctate focus of calcific plaquing of the right A2 segment producing a 25% stenosis. There is calcific plaquing of the distal right A2 segment producing between 50-70% stenosis. There is normal enhancement within the deep venous sinuses. IMPRESSION: 1. The images are degraded by motion. 2. There is an unchanged ventriculostomy catheter entering through a right temporal approach with the tip terminating in the body of the left lateral ventricle. There is unchanged ventriculomegaly. If the patient has persistent symptoms and additional imaging is desired, it could be obtained with MRI of the brain without contrast as deemed clinically appropriate. 3. There is a mild degree of chronic small-vessel ischemia. 4. There is an enhancing lesion of the left thyroid lobe measuring 17 mm in the long axis of (114, 2). This can be further characterized as an outpatient with thyroid ultrasound. It could represent benign or neoplastic etiologies. 5. There is soft and calcific plaquing of the distal left common carotid artery, carotid bulb and proximal extracranial left internal carotid artery producing multiple stenoses measuring up to 40-50% using NASCET criteria. 6. There is narrowing suggested at the origin of the left superior cerebellar artery producing approximately 50% stenosis. 7. There is calcific plaquing of the left M1 segment of the left middle cerebral artery producing a 25-50% stenosis. There is a punctate focus of calcific plaquing or evidence of branch of the left middle cerebral artery producing a 50% to slightly greater stenosis. 8. There is narrowing within the proximal left A2 segment of the left anterior cerebral artery producing up to a 50% stenosis. There is a punctate focus of calcific plaquing in the right A2 segment producing a 25% stenosis. There is calcific plaquing of the distal right A2 segment producing between 50-70% stenosis.
[2018-02-15] MEDS ORDERED: ONDANSETRON 4 MG/2 ML VIAL IVP PRN (13:53)
[2018-02-15] MEDS ORDERED: ATROPINE 1% OPHTH DROPS 2 ML SL PRN (13:53)
[2018-02-15] MEDS ORDERED: MORPHINE 2 MG/ML CARPUJECT IVP PRN (13:53)
[2018-02-15] MEDS ORDERED: PROCHLORPERAZINE 25 MG SUPP PR PRN (13:53)
[2018-02-15] MEDS ORDERED: SODIUM CHLORIDE 0.9% 1,000 ML IV SCH (14:00)
--- NOTE | 2018-02-15 15:07 | HISTORY & PHYSICAL EXAMINATION ---
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 The patient lives at [place] and according to her daughter he usually goes to bed at around 8 or 8:30 PM. This morning her and her did not show up for breakfast at 8 AM which they do every day. This alarmed the staff at the assisted living facility so they went to investigate. They found the patient on the floor in her bedroom. She was unresponsive therefore they called 911. The patient was in her pajamas and the daughter states that she usually gets into her pajamas around 8 or 830. The patient lives with her demented who could not provide any history as to what it happened to the patient nor was he even aware that she was lying on the bedroom floor. The patient's son had seen the patient the day prior to this and the patient was in her normal state of health. The son states that she was complaining of difficulty hearing but she has chronic hearing loss and has been too stubborn to get a hearing aid. He states other than that she had no other complaints and did not seem abnormal in any way. The patient is unable to provide any history secondary to aphasia. On presentation to the emergency department the patient was afebrile, tachycardic, hypertensive and saturating well on room air. On examination the patient was found to have a severe right facial droop, with right-sided weakness and left hemineglect. The patient also had aphasia. Patient underwent routine lab work which revealed a leukocytosis of 16.3, acute kidney injury with a creatinine of 1.5 and BUN of 38, an elevated troponin of 0.85 and a negative urine analysis. The patient's troponin was repeated and it was 0.95. The patient's EKG did not show any acute ischemic changes. The patient underwent a CT of her head which showed generalized age-related cortical atrophic changes without evidence of acute intracranial abnormality. The patient also underwent a CT angiogram of her head and neck which showed mild degree of small vessel ischemia with no evidence of large vessel ischemia. Given the patient's non-ST elevation DC and clinical cerebrovascular accident the emergency room physician spoke with the patient's daughter about transfer to a higher level of care. The patient's daughter expressed that the patient had lived a long and good life and that she would not want aggressive treatment for a catastrophic stroke like this. She elected to keep the patient at [facility] and make her comfort care measures. She stated if the patient did show improvement over the next 24 hours that they would consider just medical management of the patient without any interventions. The patient's daughter did not want any further imaging or labs. She did agree to physical therapy and speech therapy assessments. The patient did have slight improvement in her mentation after getting IV fluids but continued to be unable to speak, unable to follow commands and had continued right-sided weakness and right facial droop. The patient was admitted to the [facility] for further evaluation. History - Past Medical History Cardiovascular: reports: Hypertension, High cholesterol, Murmur Respiratory: reports: None Neuro: reports: Other (Normo-pressure hydrocephalus, S/P HANDKERCHIEF PRESSER shunt.) Endocrine/Autoimmune: reports: None GI: reports: None : reports: None HEENT: reports: None Psych: reports: None Musculoskeletal: reports: Osteoarthritis Derm: reports: None MRSA Hx?: No - Past Surgical History General: reports: Cholecystectomy, Appendectomy Ortho: reports: Knee replacement Neuro: reports: HANDKERCHIEF PRESSER shunt - Family & Social History Family History: Mother: , Father: , CVA/TIA, Other family: Diabetes, Type 2 (Son has diabetes) Living arrangement: Assisted living Living Situation: With spouse/s.o. Social History Notes: The patient was living at [facility] living facility with her . The patient's is demented. The patient has 4 children 3 of whom live in the area and one who lives in [place], [place]. The patient has been on [facility] for the last 50 years. She has never smoked, she does not drink alcohol and she has never used any illicit drugs. - POLST Patient has POLST: Yes POLST Status: DNR Meds/Allgy - Home Medications Home Medications: Ambulatory Orders Medication Instructions Recorded Confirmed Tolterodine [Detrol LA] 4 mg PO DAILY 08/02/12 02/15/18 Furosemide 40 mg PO DAILY 02/15/18 02/15/18 Lovastatin 40 mg PO QPM 02/15/18 02/15/18 Oxybutynin [Ditropan] 5 mg PO BID 02/15/18 02/15/18 - Allergies Allergies/Adverse Reactions: Allergies Allergy/AdvReac Type Severity Reaction Status Date / Time acetaminophen [From Percocet] Allergy Intermediate Nausea Verified 12/09/12 13:08 oxycodone HCl * Allergy Intermediate Nausea Verified 12/09/12 13:08 [From Percocet] Review of Systems - Other Findings Other Findings: The patient is unable to provide any review of systems secondary to having a aphasia. The pertinent history is provided above in the HPI. Prior Level of Functionality: Prior to presentation patient is very independent and helping to take care of her demented at an assisted living facility. Exam - Vital Signs Reviewed Vital Signs: Yes Vital Signs: Vital Signs x48h Temp Pulse Resp BP Pulse Ox 02/15/18 12:40 36.3 C L 98 16 154/81 H 97 02/15/18 11:17 99 19 163/80 H 95 02/15/18 10:24 96 16 155/94 H 100 02/15/18 09:36 36 C L 96 14 158/89 H 99 - Physical Exam General Appearance: positive: Alert, Other (Expressive aphasia, she does follow some commands, right facial droop, right sided weakness) Eyes Bilateral: positive: Normal inspection, PERRL, EOMI, No lid inflammation, Conjunctivae nml, No scleral icterus ENT: positive: ENT inspection nml, Pharynx nml, Dry mucous membranes. negative: Purulent nasal drainage, Pharyngeal erythema, Oral lesions Neck: positive: Nml inspection, Thyroid nml, No JVD, Trachea midline. negative: Thyromegaly, Lymphadenopathy (R), Lymphadenopathy (L), Stiff neck, Carotid bruit, Tracheal deviation Respiratory: positive: Chest non-tender, No respiratory distress, Breath sounds nml. negative: Wheezes, Rales, Rhonchi Cardiovascular: positive: No murmur, No gallop, Tachycardia Peripheral Pulses: positive: 2+ Abdomen: positive: Non-tender, No organomegaly, Nml bowel sounds, No distention. negative: Guarding, Rebound, Hepatomegaly Back: positive: Nml inspection. negative: CVA tenderness (R), CVA tenderness (L) Skin: positive: Color nml, No rash, Warm. negative: Cyanosis, Diaphoresis, Pall or, Skin rash Extremities: positive: Non-tender, Full ROM, Nml appearance, No pedal edema Neurologic/Psychiatric: positive: Weakness (Right sided), Facial droop (Right facial droop), Slurred/abnml speech (Expressive aphasia), Other (Left brent-neglect) Conclusion/Plan - Problem List (1) Cerebrovascular accident (CVA) Conclusion/Plan: Patient presented to the emergency department with right facial droop, right- sided weakness and left hemineglect. The patient also had expressive aphasia. Clinically the patient has had a left-sided stroke. The patient was found un responsive in her bedroom with unknown last normal. The patient was not in the TPA window. Patient's CT head and CT angiogram head and neck did not show any acute infarct or large vessel occlusion. 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 The patient's daughter elected for patient not to be transferred to higher level of care and wanted patient to be comfort measures. She does want to monitor the patient's clinical response and would like physical therapy and speech evaluation but does not want patient to be medicated or undergo any further imaging or labs. Plan: Continue to monitor neurologic status daily Physical therapy evaluation Speech therapy evaluation Palliative care consult Comfort care Qualifiers: CVA mechanism: unspecified Qualified Code(s): I63.9 - Cerebral infarction, unspecified (2) NSTEMI (non-ST elevated myocardial infarction) Conclusion/Plan: The patient presented unresponsive with with focal neurologic deficits. Patient's lab work revealed an elevated troponin of 0.85. Repeat troponin was 0.95 just 2 hours later. The patient appears to have had a non-ST elevation DC in the setting of a catastrophic stroke. The patient does not have acute ischemic changes on her EKG therefore it appears likely that the patient's stroke is causing a supply demand type II myocardial infarction. The patient is unable to make any decisions due to expressive aphasia and patient's daughter was at bedside. The patient's daughter expressed that the patient would not want to be transferred to higher level of care and would want comfort measures only. She did not want any further intervention or imaging studies or lab tests to be performed. Plan: Due to patient's ongoing stroke it would not be appropriate to give her a heparin drip or Lovenox for anticoagulation. The patient may benefit from aspirin but given the acute stroke she would not necessarily benefit from metoprolol as we would allow for permissive hypertension. The patient may also benefit from high-dose statin however the patient's daughter has decided that the patient will be comfort care measures. Comfort care with palliative consult. (3) Hypertension Conclusion/Plan: Patient has history of hypertension but given acute stroke we would allow for permissive hypertension. At this point patient is comfort care and we will not restart any antihypertensive medications even once the patient's beyond 48 hours after the stroke. Qualifiers: Hypertension type: essential hypertension Qualified Code(s): I10 - Essential (primary) hypertension (4) Normal pressure hydrocephalus Conclusion/Plan: The patient has a history of normal pressure hydrocephalus and has a intraventricular shunt. It does not appear that the patient's presenting sympto ms are due to dysfunction in the intraventricular shunt as the patient's CT and CT angiogram show that the intraventricular shunt appears to be functioning normally. For further evaluation the patient would require an MRI which the patient's daughter states the patient would not desire given that she has had a catastrophic stroke and the findings would not change anything at this time. Patient will be admitted for comfort care measures. (5) ARTURO (acute kidney injury) Conclusion/Plan: The patient does have acute kidney injury with a creatinine of 1.5. This is likely secondary to low flow state stroke and acute DC. Patient was given IV fluids in the emergency department and will continue with IV fluids on admission. - Lab Results Lab results reviewed: Yes Fish Bones: 02/15/18 09:45 02/15/18 09:45 Other Lab Results: Laboratory Results WBC 16.3 x10^3/uL (4.8-10.8) H 02/15/18 09:45 RBC 4.13 10^6/uL (4.20-5.40) L 02/15/18 09:45 Hgb 12.1 g/dL (12.0-16.0) 02/15/18 09:45 Hct 36.2 % (37.0-47.0) L 02/15/18 09:45 MCV 87.7 fL (81.0-99.0) 02/15/18 09:45 MCH 29.3 pg (27.0-31.0) 02/15/18 09:45 MCHC 33.4 g/dL (32.0-36.0) 02/15/18 09:45 RDW 14.6 % (12.0-15.0) 02/15/18 09:45 Plt Count 202 10^3/uL (130-450) 02/15/18 09:45 MPV 8.2 fL (7.9-10.8) 02/15/18 09:45 Neut # (Auto) 14.6 10^3/uL (1.5-6.6) H 02/15/18 09:45 Lymph # (Auto) 0.9 10^3/uL (1.5-3.5) L 02/15/18 09:45 [place] # (Auto) 0.7 10^3/uL (0.0-1.0) 02/15/18 09:45 Eos # (Auto) 0.0 10^3/uL (0.0-0.7) 02/15/18 09:45 Baso # (Auto) 0.1 10^3/uL (0.0-0.1) 02/15/18 09:45 Absolute Nucleated RBC 0.01 x10^3/uL 02/15/18 09:45 Nucleated RBC % 0.0 /100WBC 02/15/18 09:45 Sodium 138 mmol/L (135-145) 02/15/18 09:45 Potassium 3.9 mmol/L (3.5-5.0) 02/15/18 09:45 Chloride 102 mmol/L (101-111) 02/15/18 09:45 Carbon Dioxide 26 mmol/L (21-32) 02/15/18 09:45 Anion Gap 10.0 (6-13) 02/15/18 09:45 BUN 38 mg/dL (6-20) H 02/15/18 09:45 Creatinine 1.5 mg/dL (0.4-1.0) H 02/15/18 09:45 Estimated GFR (MDRD) 33 (>89) L 02/15/18 09:45 Glucose 107 mg/dL (70-100) H 02/15/18 09:45 Lactic Acid 0.9 mmol/L (0.5-2.2) 02/15/18 09:58 Calcium 8.9 mg/dL (8.5-10.3) 02/15/18 09:45 Total Bilirubin 0.6 mg/dL (0.2-1.0) 02/15/18 09:45 AST 17 IU/L (10-42) 02/15/18 09:45 ALT 14 IU/L (10-60) 02/15/18 09:45 Alkaline Phosphatase 79 IU/L (42-121) 02/15/18 09:45 Troponin I 0.95 ng/mL (<0.49) H* 02/15/18 12:23 Total Protein 7.5 g/dL (6.7-8.2) 02/15/18 09:45 Albumin 4.0 g/dL (3.2-5.5) 02/15/18 09:45 Globulin 3.5 g/dL (2.1-4.2) 02/15/18 09:45 Albumin/Globulin Ratio 1.1 (1.0-2.2) 02/15/18 09:45 Lipase 42 U/L (22-51) 02/15/18 09:45 Urine Color YELLOW 02/15/18 10:10 Urine Clarity CLEAR (CLEAR) 02/15/18 10:10 Urine pH 6.5 PH (5.0-7.5) 02/15/18 10:10 Ur Specific [place] 1.015 (1.002-1.030) 02/15/18 10:10 Urine Protein NEGATIVE mg/dL (NEGATIVE) 02/15/18 10:10 Urine Glucose (UA) NEGATIVE mg/dL (NEGATIVE) 02/15/18 10:10 Urine Ketones NEGATIVE mg/dL (NEGATIVE) 02/15/18 10:10 Urine Occult Blood NEGATIVE (NEGATIVE) 02/15/18 10:10 Urine Nitrite NEGATIVE (NEGATIVE) 02/15/18 10:10 Urine Bilirubin NEGATIVE (NEGATIVE) 02/15/18 10:10 Urine Urobilinogen 0.2 (NORMAL) E.U./dL (NORMAL) 02/15/18 10:10 Ur Leukocyte Esterase NEGATIVE (NEGATIVE) 02/15/18 10:10 Ur Microscopic Review NOT INDICATED 02/15/18 10:10 Urine Culture Comments NOT INDICATED 02/15/18 10:10 - Diagnostic Imaging Results Diagnostic Imaging Results: positive: Final report reviewed Diagnostic Imaging Results Comments: EXAM: [id number] CT/HEADWO ([id number]) Reason: R brent/aphasia Procedure Date: 02/15/2018 Accession Number: [id number] / [id number] Procedure: CT - Head W/O CPT Code: FULL RESULT: EXAM: CT HEAD EXAM DATE: 02/15/2018 11:00 AM. CLINICAL HISTORY: R brent/aphasia. COMPARISON: 02/15/2018. TECHNIQUE: Multiaxial CT images were obtained from the foramen magnum to the vertex. Reformats: Sagittal and coronal. IV contrast: None. In accordance with CT protocol optimization, one or more of the following dose reduction techniques were utilized for this exam: automated exposure control, adjustment of mA and/or KV based on patient size, or use of iterative reconstructive technique. FINDINGS: Parenchyma: No intraparenchymal hemorrhage. No evidence of mass, midline shift, or CT findings of acute infarction. Sanchez-white differentiation is distinct. Diffuse chronic microangiopathic white matter changes are evident. Vascular calcifications in the visualized vertebral arteries and bilateral M1 segments appears unchanged compared to prior. Extraaxial Spaces: Normal for age. No subdural or epidural collections identified. Ventricles: Persistent dilation of the lateral, third, and fourth ventricles, unchanged compared to prior. For example, the third ventricle measures 17 mm width, unchanged. Ventricular dilation is somewhat out of proportion to sulcal dilation which suggests underlying normal pressure hydrocephalus. Stable position of the right parietal approach ventricular catheter. Sinuses and orbits: Imaged paranasal sinuses, orbits, and mastoids show no significant abnormality. Bones: No evidence of fracture or calvarial defect. Other: None. IMPRESSION: 1. Generalized age-related cortical atrophic changes without evidence of acute intracranial abnormality. If concern for infarction persists, MRI could be obtained for additional evaluation. 2. Stable position of ventricular catheter with stable dilation of the ventricles. EXAM: [id number] CT/HEADANG ([id number]) Reason: right brent/aphasia Procedure Date: 02/15/2018 Accession Number: [id number] / [id number] Procedure: CT - Head Angio CPT Code: FULL RESULT: IMPRESSION: 1. The images are degraded by motion. 2. There is an unchanged ventriculostomy catheter entering the right temporal approach with the tip terminating in the body of the left lateral ventricle. There is unchanged ventriculomegaly. If the patient has persistent symptoms and additional imaging is desired it could be obtained with MRI of the brain without contrast as deemed clinically appropriate. 3. There is a mild degree of chronic small vessel ischemia. 4. There is an enhancing lesion of the left thyroid lobe measuring 17 mm in the long axis of (114, 2). This can be further characterized as an outpatient with thyroid ultrasound. It could represent benign or neoplastic etiologies. 5. There is soft and calcific plaquing of the distal left common carotid artery, carotid bulb and proximal extracranial left internal carotid artery producing multiple stenoses measuring up to 40-50% using NASCET criteria. 6. There is narrowing suggested at the origin of the left superior cerebellar artery producing approximately 50% stenosis. 7. There is calcific plaquing of the left M1 segment of the left middle cerebral artery producing a 25-50% stenosis. There is a punctate focus of calcific plaquing or evidence of branch of the left middle cerebral artery reducing a 50% to slightly greater stenosis. 8. There is narrowing within the proximal left A2 segment of the left anterior cerebral artery producing up to a 50% stenosis. There is a punctate focus of calcific plaquing in the right A2 segment producing a 25% stenosis. There is calcific plaquing of the distal right A2 segment producing between 50-70% stenosis. IMPRESSION: 1. The images are degraded by motion. 2. There is an unchanged ventriculostomy catheter entering the right temporal approach with the tip terminating in the body of the left lateral ventricle. There is unchanged ventriculomegaly. If the patient has persistent symptoms and additional imaging is desired it could be obtained with MRI of the brain without contrast as deemed clinically appropriate. 3. There is a mild degree of chronic small vessel ischemia. 4. There is an enhancing lesion of the left thyroid lobe measuring 17 mm in the long axis of (114, 2). This can be further characterized as an outpatient with thyroid ultrasound. It could represent benign or neoplastic etiologies. 5. There is soft and calcific plaquing of the distal left common carotid artery, carotid bulb and proximal extracranial left internal carotid artery producing multiple stenoses measuring up to 40-50% using NASCET criteria. 6. There is narrowing suggested at the origin of the left superior cerebellar artery producing approximately 50% stenosis. 7. There is calcific plaquing of the left M1 segment of the left middle cerebral artery producing a 25-50% stenosis. There is a punctate focus of calcific plaquing or evidence of branch of the left middle cerebral artery reducing a 50% to slightly greater stenosis. 8. There is narrowing within the proximal left A2 segment of the left anterior cerebral artery producing up to a 50% stenosis. There is a punctate focus of calcific plaquing in the right A2 segment producing a 25% stenosis. There is calcific plaquing of the distal right A2 segment producing between 50-70% stenosis. EXAM: [id number] CT/NECKANG ([id number]) Reason: R brent/aphasia Procedure Date: 02/15/2018 Accession Number: [id number] / [id number] Procedure: CT - Neck Angio CPT Code: FULL RESULT: IMPRESSION: 1. The images are degraded by motion. 2. There is an unchanged ventriculostomy catheter entering the right temporal approach with the tip terminating in the body of the left lateral ventricle. There is unchanged ventriculomegaly. If the patient has persistent symptoms and additional imaging is desired it could be obtained with MRI of the brain without contrast as deemed clinically appropriate. 3. There is a mild degree of chronic small vessel ischemia. 4. There is an enhancing lesion of the left thyroid lobe measuring 17 mm in the long axis of (114, 2). This can be further characterized as an outpatient with thyroid ultrasound. It could represent benign or neoplastic etiologies. 5. There is soft and calcific plaquing of the distal left common carotid artery, carotid bulb and proximal extracranial left internal carotid artery producing multiple stenoses measuring up to 40-50% using NASCET criteria. 6. There is narrowing suggested at the origin of the left superior cerebellar artery producing approximately 50% stenosis. 7. There is calcific plaquing of the left M1 segment of the left middle cerebral artery producing a 25-50% stenosis. There is a punctate focus of calcific plaquing or evidence of branch of the left middle cerebral artery reducing a 50% to slightly greater stenosis. 8. There is narrowing within the proximal left A2 segment of the left anterior cerebral artery producing up to a 50% stenosis. There is a punctate focus of calcific plaquing in the right A2 segment producing a 25% stenosis. There is calcific plaquing of the distal right A2 segment producing between 50-70% stenosis. IMPRESSION: 1. The images are degraded by motion. 2. There is an unchanged ventriculostomy catheter entering the right temporal approach with the tip terminating in the body of the left lateral ventricle. There is unchanged ventriculomegaly. If the patient has persistent symptoms and additional imaging is desired it could be obtained with MRI of the brain without contrast as deemed clinically appropriate. 3. There is a mild degree of chronic small vessel ischemia. 4. There is an enhancing lesion of the left thyroid lobe measuring 17 mm in the long axis of (114, 2). This can be further characterized as an outpatient with thyroid ultrasound. It could represent benign or neoplastic etiologies. 5. There is soft and calcific plaquing of the distal left common carotid artery, carotid bulb and proximal extracranial left internal carotid artery producing multiple stenoses measuring up to 40-50% using NASCET criteria. 6. There is narrowing suggested at the origin of the left superior cerebellar artery producing approximately 50% stenosis. 7. There is calcific plaquing of the left M1 segment of the left middle cerebral artery producing a 25-50% stenosis. There is a punctate focus of calcific plaquing or evidence of branch of the left middle cerebral artery reducing a 50% to slightly greater stenosis. 8. There is narrowing within the proximal left A2 segment of the left anterior cerebral artery producing up to a 50% stenosis. There is a punctate focus of calcific plaquing in the right A2 segment producing a 25% stenosis. There is calcific plaquing of the distal right A2 segment producing between 50-70% stenosis. - EKG Results EKG Interpreted Independently: Yes EKG Findings: No ST elevations Core Measures - Anticipated LOS I expect patient to be DC'd or transferred within 96 hours.: Yes - DVT/VTE - Prophylaxis VTE/DVT Device ordered at admit?: No Not Ordered - Medical Reason: Not indicated
[2018-02-15] MEDS ORDERED: SODIUM CHLORIDE FLUSH 0.9% 10 ML SYRINGE ONE (16:41)
--- NOTE | 2018-02-16 14:50 | ADVANCE CARE PLANNING NOTE ---
Advance Care Planning - Date/Time Date: 02/15/18 Time: 15:00 - Purpose of encounter Text: Establish goals of care and treatment goals - Parties in attendance Parties in attendance: Patient's son and daughter. Patient's son is the executor of her will and DURABLE POWER OF NIGHT WAREHOUSE SELECTOR. - Decisional capacity Decisional capacity of: Patient has no decision-making capacity. She has expressive aphasia. She is unable to participate in decision-making at this time due to a catastrophic stroke. - Subjective/Patient's story Subjective/Patient's story: Prior to presentation to the emergency department the patient was living independently with her at an assisted living facility. She was very cognizant and active. She took care of her who has advanced dementia. She was fairly healthy with no major medical problems causing any sort of debility or decreased quality of life. - Objective/Medical story Objective/Medical Story: The patient was last seen in her normal state of health by her son 1 day prior to admission to the hospital. On the morning of admission the patient did not come down for breakfast and neither did her therefore staff at the assisted living facility went to the patient's room and found her unresponsive on the floor. She did have a pulse and was breathing. She was brought to the emergency department where she was found to have right-sided weakness with hemineglect, facial droop and expressive aphasia. The patient's CT scan and CT angios did not show any acute stroke. The patient however did clinically have a stroke. She also was found to have an non-ST elevation KS with elevated troponin. - Goals of Care Goals of care determinations: The patient's daughter brought with her the patient's POLST form where she has indicated she wanted to be DNR and would not want any tube feedings or ar tificial nutrition. The patient does not appear to have the ability to swallow. Taking the patient's previous desires the family would like to proceed with hospice and comfort measures only. - Plan Plan: Patient will be hospitalized for comfort care, no further lab tests, imaging studies will be performed. The patient will be assessed by physical therapy and speech therapy to determine if she has any chance at recovery. Currently the family is leaning toward hospice if patient does not have major improvement in the next 24 hours. - Code Status Code Status: Do Not Attempt Resuscitation - Time Spent on Advance Care Planning Time spent on advance care plannin minutes
--- NOTE | 2018-02-16 15:02 | PROVIDER PROGRESS NOTE ---
Assessment/Plan - Problem List (1) Cerebrovascular accident (CVA) Qualifiers: CVA mechanism: unspecified Qualified Code(s): I63.9 - Cerebral infarction, unspecified Assessment/Plan: Patient presented to the emergency department with right facial droop, right- sided weakness and right hemineglect. The patient also had expressive aphasia. Clinically the patient has had a left-sided stroke. Patient's CT head and CT angiogram head and neck did not show any acute infarct or large vessel occlusion. 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 Patient evaluated by PT and was able to stand but kept falling to the right side. She is receptive and follows commands but has expressive aphasia Patient was evaluated but speech and has complete paralysis of her tongue and is unable to swallow Patient indicated in her POLST form that she would not want any kind of tube feeding or IV nutrition Patients family elects for patient to go into hospice Hospice, Palliative care and Social work consulted and will work on getting patient to [facility] or other facility with hospice Comfort care Qualifiers: CVA mechanism: unspecified Qualified Code(s): I63.9 - Cerebral infarction, unspecified (2) NSTEMI (non-ST elevated myocardial infarction) Conclusion/Plan: The patient presented unresponsive with with focal neurologic deficits. Lorena ent's lab work revealed an elevated troponin of 0.85. Repeat troponin was 0.95 just 2 hours later. The patient appears to have had a non-ST elevation KS in the setting of a catastrophic stroke. The patient does not have acute ischemic changes on her EKG therefore it appears likely that the patient's stroke is causing a supply demand type II myocardial infarction. The patient is unable to make any decisions due to expressive aphasia and patient's daughter was at bedside. The patient's daughter expressed that the patient would not want to be transferred to higher level of care and would want comfort measures only. She did not want any further intervention or imaging studies or lab tests to be performed. Due to patient's ongoing stroke it would not be appropriate to give her a heparin drip or Lovenox for anticoagulation. The patient may benefit from aspirin but given the acute stroke she would not necessarily benefit from metoprolol as we would allow for permissive hypertension. The patient may also benefit from high-dose statin however the family has decided that the patient w ill be comfort care measures. Comfort care Hospice (3) Hypertension Conclusion/Plan: Patient has history of hypertension but given acute stroke we would allow for permissive hypertension. At this point patient is comfort care and we will not restart any antihypertensive medications even once the patient's beyond 48 hours after the stroke. Hospice consulted Vitals prn Comfort care Qualifiers: Hypertension type: essential hypertension Qualified Code(s): I10 - Essential (primary) hypertension (4) Normal pressure hydrocephalus Conclusion/Plan: The patient has a history of normal pressure hydrocephalus and has a intraventricular shunt. It does not appear that the patient's presenting symptoms are due to dysfunction in the intraventricular shunt as the patient's CT and CT angiogram show that the intraventricular shunt appears to be functioning normally. For further evaluation the patient would require an MRI which the patient's daughter states the patient would not desire given that she has had a catastrophic stroke and the findings would not change anything at this time. Comfort care Hospice (5) ARTURO (acute kidney injury) Conclusion/Plan: The patient does have acute kidney injury with a creatinine of 1.5. This is likely secondary to low flow state stroke and acute KS. Patient was given IV fluids in the emergency department and continued with IVFs. Will stop fluids given she is comfort care and going to be hospice - Current Meds Current Meds: Current Medications Generic Name Dose Route Start Last Admin Trade Name Freq PRN Reason Stop Dose Admin Sodium Chloride 1,000 mls @ 0 mls/hr 02/15/18 14:00 02/15/18 16:41 Normal Saline 0.9% IV 20 mls/hr .Q0M BALTA Administration TKO - Lab Result Lab results reviewed: Yes Fish Bone Diagrams: 02/15/18 09:45 02/15/18 09:45 - Diagnostic Imaging Results Diagnostic Imaging Results: Final report reviewed - Additional Planning Condition/Complexity: Guarded My Orders: My Active Orders 02/15/18 14:00 Sodium Chloride 0.9% [Normal Saline 0.9%] 1,000 ml IV TKO 02/16/18 Hospice Referral [CONS] Routine Plan Discussed with:: Family Time Spent: 31-60 minutes Subjective - Subjective Patient Reports: Resting Comfortably, Other (Continues to follow commands but cannot speak. She is unable to move her tongue and cannot swallow. She has right hemineglect) Nursing Reports: No Complaints Objective Vital Signs: Vital Signs - 24 hr 02/15/18 02/16/18 02/16/18 19:15 01:52 10:15 Temperature 36.6 C Heart Rate [ 84 91 Brachial] Heart Rate [ 91 Sitting] Heart Rate [ 93 Supine] Respiratory 20 20 Rate Blood Pressure 148/62 H [Right Brachial artery] Blood Pressure 147/72 H [Sitting] Blood Pressure 142/72 H [Supine] O2 Saturation 96 97 Oxygen O2 Source Room air I&O (Last 24 Hrs): Intake and Output Totals x24h 02/14/18 02/15/18 02/16/18 23:59 23:59 23:59 Intake Total 1000 Output Total 125 Balance 1000 -125 General: Other (Expressive aphasia, follows commands, right hemineglect, right sided weakness) HEENT: Atraumatic, PERRLA, EOMI, Other (Dry mucus membranes) Neck: Supple, No JVD, No thyromegaly, +2 carotid pulse wo bruit, No LAD Lymphatic: no adenopathy Neuro: Alert, Focal Deficits (Right sided weakness, expressive aphasia, right hemineglect) Cardiovascular: Regular rate, Normal S1, Normal S2, No murmurs Respiratory: Chest non-tender, No respiratory distress, Breath sounds nml Abdomen: Normal bowel sounds, Soft, No tenderness, No hepatospenomegaly Extremities: No clubbing, No cyanosis, No edema, Normal pulses, No tenderness/swelling Skin: No rashes, No breakdown - Results Results: Laboratory Results WBC 16.3 x10^3/uL (4.8-10.8) H 02/15/18 09:45 RBC 4.13 10^6/uL (4.20-5.40) L 02/15/18 09:45 Hgb 12.1 g/dL (12.0-16.0) 02/15/18 09:45 Hct 36.2 % (37.0-47.0) L 02/15/18 09:45 MCV 87.7 fL (81.0-99.0) 02/15/18 09:45 MCH 29.3 pg (27.0-31.0) 02/15/18 09:45 MCHC 33.4 g/dL (32.0-36.0) 02/15/18 09:45 RDW 14.6 % (12.0-15.0) 02/15/18 09:45 Plt Count 202 10^3/uL (130-450) 02/15/18 09:45 MPV 8.2 fL (7.9-10.8) 02/15/18 09:45 Neut # (Auto) 14.6 10^3/uL (1.5-6.6) H 02/15/18 09:45 Lymph # (Auto) 0.9 10^3/uL (1.5-3.5) L 02/15/18 09:45 [place] # (Auto) 0.7 10^3/uL (0.0-1.0) 02/15/18 09:45 Eos # (Auto) 0.0 10^3/uL (0.0-0.7) 02/15/18 09:45 Baso # (Auto) 0.1 10^3/uL (0.0-0.1) 02/15/18 09:45 Absolute Nucleated RBC 0.01 x10^3/uL 02/15/18 09:45 Nucleated RBC % 0.0 /100WBC 02/15/18 09:45 Sodium 138 mmol/L (135-145) 02/15/18 09:45 Potassium 3.9 mmol/L (3.5-5.0) 02/15/18 09:45 Chloride 102 mmol/L (101-111) 02/15/18 09:45 Carbon Dioxide 26 mmol/L (21-32) 02/15/18 09:45 Anion Gap 10.0 (6-13) 02/15/18 09:45 BUN 38 mg/dL (6-20) H 02/15/18 09:45 Creatinine 1.5 mg/dL (0.4-1.0) H 02/15/18 09:45 Estimated GFR (MDRD) 33 (>89) L 02/15/18 09:45 Glucose 107 mg/dL (70-100) H 02/15/18 09:45 Lactic Acid 0.9 mmol/L (0.5-2.2) 02/15/18 09:58 Calcium 8.9 mg/dL (8.5-10.3) 02/15/18 09:45 Total Bilirubin 0.6 mg/dL (0.2-1.0) 02/15/18 09:45 AST 17 IU/L (10-42) 02/15/18 09:45 ALT 14 IU/L (10-60) 02/15/18 09:45 Alkaline Phosphatase 79 IU/L (42-121) 02/15/18 09:45 Troponin I 0.95 ng/mL (<0.49) H* 02/15/18 12:23 Total Protein 7.5 g/dL (6.7-8.2) 02/15/18 09:45 Albumin 4.0 g/dL (3.2-5.5) 02/15/18 09:45 Globulin 3.5 g/dL (2.1-4.2) 02/15/18 09:45 Albumin/Globulin Ratio 1.1 (1.0-2.2) 02/15/18 09:45 Lipase 42 U/L (22-51) 02/15/18 09:45 Urine Color YELLOW 02/15/18 10:10 Urine Clarity CLEAR (CLEAR) 02/15/18 10:10 Urine pH 6.5 PH (5.0-7.5) 02/15/18 10:10 Ur Specific [place] 1.015 (1.002-1.030) 02/15/18 10:10 Urine Protein NEGATIVE mg/dL (NEGATIVE) 02/15/18 10:10 Urine Glucose (UA) NEGATIVE mg/dL (NEGATIVE) 02/15/18 10:10 Urine Ketones NEGATIVE mg/dL (NEGATIVE) 02/15/18 10:10 Urine Occult Blood NEGATIVE (NEGATIVE) 02/15/18 10:10 Urine Nitrite NEGATIVE (NEGATIVE) 02/15/18 10:10 Urine Bilirubin NEGATIVE (NEGATIVE) 02/15/18 10:10 Urine Urobilinogen 0.2 (NORMAL) E.U./dL (NORMAL) 02/15/18 10:10 Ur Leukocyte Esterase NEGATIVE (NEGATIVE) 02/15/18 10:10 Ur Microscopic Review NOT INDICATED 02/15/18 10:10 Urine Culture Comments NOT INDICATED 02/15/18 10:10 - Procedures Procedures: Procedures CATARAC PHACOEMULS/ASPIR (03/04/13) INSERT LENS AT CATAR EXT (03/04/13) ABX Reporting Has patient been on IV antibiotics over the past 48 hours?: No Current Medications - Current Medications Current Medications: Active Medications Generic Name Dose Route Start Last Admin Trade Name Freq PRN Reason Stop Dose Admin Atropine Sulfate 1 - 4 drops 02/15/18 13:53 Isopto Atropine 1% Ophth Drops SL Q2H PRN Excessive secretions Carboxymethylcellulose 1 drops 02/15/18 13:53 Refresh 1% Ophth Drops EACHEYE QID PRN Dry Eye Sodium Chloride 1,000 mls @ 0 mls/hr 02/15/18 14:00 02/15/18 16:41 Normal Saline 0.9% IV 20 mls/hr .Q0M BALTA Administration TKO Lorazepam 1 mg 02/15/18 13:53 Ativan Inj (Vial) IVP Q6H PRN Anxiety/Agitation Morphine Sulfate 2 mg 02/15/18 13:53 Morphine (Carpuject) IVP Q2HR PRN Pain or Shortness of air Ondansetron HCl 4 mg 02/15/18 13:53 Zofran Inj IVP Q8H PRN Nausea / Vomiting Prochlorperazine Maleate 25 mg 02/15/18 13:53 Compazine Supp AR TID PRN Nausea / Vomiting Tolterodine [Detrol LA] 4 mg PO DAILY 08/02/12 Furosemide 40 mg PO DAILY 02/15/18 Lovastatin 40 mg PO QPM 02/15/18 Oxybutynin [Ditropan] 5 mg PO BID 02/15/18
--- NOTE | 2018-02-16 15:42 | CONSULTATION NOTE ---
Palliative Care Consultation - Referral Referring Provider: Dr Garcia Time of Visit: 02/16/2018. 14:50 - 15:15. 15:20 - 15:30 Referral setting: Hospitalized patient Referral Reason: Advance Care Planning - Information Sources Records reviewed: Previous records reviewed History/Review of Systems obtained from: Family, Nursing, Other (Hospitalist ; hospitalist ALFONZO) Exam limitations: Clinical condition (major CVA; aphasia) - History of Present Illness Brief History of Present Illness: 87-year-old female, found unresponsive on the floor of her apartment at [facility], where she lives with her , who has advanced dementia. She is his main caregiver. She was taken to ED, found to have suffered catastrophic CVA, with R side hemiparesis, aphasia and dysphagia. 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 Family conference with son, Burt, and hospital social media community manager Nava. Comfort care has been decided upon, and transition to Hospice because patient has significant dysphagia, unable to swallow anything. The patient had previously chosen DNR and no tube feeding in her POLST. Family has based the transfer to Hospice on patient's previous wishes expressed in the POLST. All the siblings are on board with this decision except the eldest daughter is in OR. She is estranged from her parents, and has verbalized to the siblings she doesn't want to be involved in decision making for the parents. Burt is the executor, none of the children have DPOA, it had been the , but he has advanced dementia. We discussed at length environments that would be suitable for the patient. SNF would provide the appropriate level of care. One daughter is against using [facility] due to reputation. Burt, the son, will visit it today. We discussed [facility] options and recommended that the appropriate level of care will be with a nursing facility, not assisted living. He is also planning to visit [facility], for the patient, but also for his father, since they will need to relocate the father. He also wants to visit [facility] for the patient, which is not optimum since it's also [facility]. Medical/Surgical History - Past Medical History Cardiovascular: reports: Murmur Respiratory: reports: None Neuro: Other (Normo-pressure hydrocephalus, S/P JACK SETTER shunt.) Neuro: reports: None Endocrine/Autoimmune: reports: None GI: reports: None : reports: None HEENT: reports: None Psych: reports: None Musculoskeletal: reports: Osteoarthritis Derm: reports: None MRSA Hx?: No Other Past Medical History: Pt. unable to answer PT about her med. hx; info from chart. - Past Surgical History General: reports: Cholecystectomy, Appendectomy Ortho: reports: Knee replacement Neuro: reports: JACK SETTER shunt - Substance History Use: Uses substance without health or social issues: NONE Tobacco Details: Other (Never smoker) Social History - Living Situation Living arrangement: Assisted living ([facility]) Living Situation: With spouse/s.o. Support System: Patient has been living at [facility] with spouse who has dementia. She has been his main caregiver. She and her have lived on [facility] for 50 years. They have 4 adult children; eldest daughter is in OR and doesn't have a relationship with her parents; son Burt reports she declines to take part in healthcare decision making. Family History - Family History Family History Comment/Other: Father CVA/TIA. Mother . Son has Type 2 diabetes. Medications/Allergies - Medications Active Medication List: Active Medications Atropine Sulfate (Isopto Atropine 1% Ophth Drops) 1 - 4 drops SL Q2H PRN PRN Reason: Excessive secretions Carboxymethylcellulose (Refresh 1% Ophth Drops) 1 drops EACHEYE QID PRN PRN Reason: Dry Eye Lorazepam (Ativan Inj (Vial)) 1 mg IVP Q6H PRN PRN Reason: Anxiety/Agitation Morphine Sulfate (Morphine (Carpuject)) 2 mg IVP Q2HR PRN PRN Reason: Pain or Shortness of air Ondansetron HCl (Zofran Inj) 4 mg IVP Q8H PRN PRN Reason: Nausea / Vomiting Prochlorperazine Maleate (Compazine Supp) 25 mg IA TID PRN PRN Reason: Nausea / Vomiting Tolterodine [Detrol LA] 4 mg PO DAILY 08/02/12 Furosemide 40 mg PO DAILY 02/15/18 Lovastatin 40 mg PO QPM 02/15/18 Oxybutynin [Ditropan] 5 mg PO BID 02/15/18 - Allergies Allergies/Adverse Reactions: Allergies Allergy/AdvReac Type Severity Reaction Status Date / Time acetaminophen [From Percocet] Allergy Intermediate Nausea Verified 12/09/12 13:08 oxycodone HCl * Allergy Intermediate Nausea Verified 12/09/12 13:08 [From Percocet] Review of Systems - Ears, Nose & Throat Ears, Nose & Throat: reports: Hearing loss. denies: Hearing aids (refuses, per family report) - Cardiovascular Cardiovascular: denies: Edema - Neurological Neurological: reports: Focal weakness (R side hemiparesis), Other (Expressive aphasia; dysphagia, doesn't have the ability to swallow) - Other Findings Other Findings: Limited ROS: expressive aphasia Physical Exam - Vital Signs Vital Signs: Vital Signs x48h Pulse Pulse BP BP 02/16/18 10:15 91 93 147/72 H 142/72 H - Physical Exam General Appearance: positive: No acute distress, Alert Eyes Bilateral: positive: No lid inflammation, Conjunctivae nml, No scleral icterus ENT: positive: No signs of dehydration, Other Neck: positive: Trachea midline Cardiovascular: positive: No murmur, No gallop Respiratory: positive: Chest non-tender, No respiratory distress. negative: Wheezes, Rales Abdomen: positive: Non-tender, Soft Skin: positive: No symptoms Extremities: positive: Nml appearance, No pedal edema Neurologic/Psychiatric: positive: Weakness (right side), Facial droop, Slurred/abnml speech (expressive aphasia) Palliative Care - POLST Patient has POLST: Yes POLST Status: DNR, Selective Treatment Performance Status: Bed bound R side hemiparesis Expressive aphasia Inability to swallow - Palliative Care Discussion: Comfort care and Hospice has been chosen based on patient's written wishes in POLST, DNR and no tube feeding. Patient has severe dysphagia and a swallow evaluation reveals she is unable to swallow anything. There is no assigned DPOA apart from the spouse, who has dementia. Children all share DPOA authority and per Burt, they are all agreeable to transitioning her to Hospice, with the exception of the eldest daughter, currently in OR. She declines to be involved in any decisions. SW will follow up with her. Family is researching where to tranfer the patient. SNF/FLT is most appropriate; however, they do not like [facility], so they will need to choose [facility] if t hey go with SNF/LTC. An [facility] is a less desirable option, but they may research [facility]. Results - Lab Results Fish Bones: 02/15/18 09:45 02/15/18 09:45 Impression and Recommendations - Palliative Care Impression: 87 year old woman with acute, catastrophic CVA, now R side hemiplegic, with expressive aphasia and total dysphagia. Family is choosing comfort care and transfer to Hospice based on patient's advanced directives and wishes on the POLST: no tube feeding. Recommendations/Counseling Done: CVA: R facial droop, R side weakness and hemiparsis, and L hemineglect. Dysphagia: Swallow evaluation reveals no ability to swallow. Patient has chosen no tube feeding. Family supportive of comfort measure and transition to Hospice. They do not want further imaging or labs. NSTEMI: Troponin was 0.85, 0.95 2 hours later. Patient appears to have had a NSTEMI in the setting of catastrophic stroke. Family has declined new medications, opts for comfort care. Acute Kidney Injury: Creatinine 1.5. Given IV fluids. Advance care planning: POLST in place: DNR, selective, no tube feeding. Family elects comfort care and transition to Hospice based on patient's written wishes in POLST and advance directives. [facility] , family is researching and deciding on which facility. They don't want [facility], will consider [place] SNFs. [facility] is less desirable environment and not recommended by Palliative Care or SW but they are considering [facility], possibly [facility]. Time Spent: 30 minutes were spent with more than 50% of the time spent on counseling, education, providing anticipatory guidance, and coordination of care.
[2018-02-17] MEDS: CARBOXYMETHYLCELLULOSE OPHTH DROPS EACHEYE PRN ×3 (03:12→17:54)
--- NOTE | 2018-02-17 11:35 | PROVIDER PROGRESS NOTE ---
Assessment/Plan - Problem List (1) Cerebrovascular accident (CVA) Qualifiers: CVA mechanism: unspecified Qualified Code(s): I63.9 - Cerebral infarction, unspecified Assessment/Plan: Patient presented to the emergency department with right facial droop, right- sided weakness and right hemineglect. The patient also had expressive aphasia. Clinically the patient has had a left-sided stroke. Patient's CT head and CT angiogram head and neck did not show any acute infarct or large vessel occlusion. 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 Patient evaluated by PT and was able to stand but kept falling to the right side. 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 Patient's lab work revealed an elevated troponin of 0.85. Repeat troponin was 0.95 just 2 hours later. The patient appears to have had a non-ST elevation WA in the setting of a catastrophic stroke. The patient does not have acute ischemic changes on her EKG therefore it appears likely that the patient's stroke is causing a supply demand type II myocardial infarction. The patient is unable to make any decisions due to expressive aphasia and patient's daughter was at bedside. The patient's daughter expressed that the patient would not want to be transferred to higher level of care and would want comfort measures only. She did not want any further intervention or imaging studies or lab tests to be performed. Due to patient's ongoing stroke it would not be appropriate to give her a heparin drip or Lovenox for anticoagulation. The patient may benefit from aspirin but given the acute stroke she would not necessarily benefit from metoprolol as we would allow for permissive hypertension. The patient may also benefit from high-dose statin however the family has decided that the patient will be comfort care measures. [facility] (3) Hypertension Conclusion/Plan: Patient has history of hypertension but given acute stroke we would allow for permissive hypertension. At this point patient is comfort care and we will not restart any antihypertensive medications even once the patient's beyond 48 hours after the stroke. Hospice consulted Vitals prn Comfort care Qualifiers: Hypertension type: essential hypertension Qualified Code(s): I10 - Essential (primary) hypertension (4) Normal pressure hydrocephalus Conclusion/Plan: The patient has a history of normal pressure hydrocephalus and has a intraventricular shunt. It does not appear that the patient's presenting symptoms are due to dysfunction in the intraventricular shunt as the patient's CT and CT angiogram show that the intraventricular shunt appears to be functioni ng normally. For further evaluation the patient would require an MRI which the patient's daughter states the patient would not desire given that she has had a catastrophic stroke and the findings would not change anything at this time. Comfort care Hospice (5) ARTURO (acute kidney injury) Conclusion/Plan: The patient does have acute kidney injury with a creatinine of 1.5. This is likely secondary to low flow state stroke and acute WA. Patient was given IV fluids in the emergency department and continued with IVFs. Will stop fluids given she is comfort care and going to be hospice - Current Meds Current Meds: Current Medications Generic Name Dose Route Start Last Admin Trade Name Freq PRN Reason Stop Dose Admin Carboxymethylcellulose 1 drops 02/15/18 13:53 02/17/18 03:12 Refresh 1% Ophth Drops EACHEYE 1 drops QID PRN Administration Dry Eye - Lab Result Lab results reviewed: Yes Fish Bone Diagrams: 02/15/18 09:45 02/15/18 09:45 - Diagnostic Imaging Results Diagnostic Imaging Results: Final report reviewed - Additional Planning Condition/Complexity: Guarded My Orders: My Active Orders 02/17/18 21:00 Bacitracin Oint [Bacitracin] 1 packet TOP BID Plan Discussed with:: Family Time Spent: 15-30 minutes Subjective - Subjective Patient Reports: Other (Expressive aphasia, right brent neglect, right facial droop) Nursing Reports: No Complaints Objective Vital Signs: Vital Signs - 24 hr 02/16/18 22:36 Temperature 36.8 C Heart Rate [ 90 Brachial] Respiratory 17 Rate O2 Saturation 97 Oxygen O2 Source Room air I&O (Last 24 Hrs): Intake and Output Totals x24h 02/15/18 02/16/18 02/17/18 23:59 23:59 23:59 Intake Total 1000 459 Output Total 125 0 Balance 1000 334 0 General: Alert, Other (Expressive aphasia, right brent neglect) HEENT: Atraumatic, PERRLA, EOMI, Other (Dry mucus membranes) Neck: Supple, No JVD, No thyromegaly, +2 carotid pulse wo bruit, No LAD Lymphatic: no adenopathy Neuro: Alert, Focal Deficits (Right sided weakness, right brent-neglect, expressive aphasia) Cardiovascular: Regular rate, Normal S1, Normal S2, No murmurs Respiratory: Chest non-tender, No respiratory distress, Breath sounds nml Abdomen: Normal bowel sounds, Soft, No tenderness, No hepatospenomegaly Extremities: No clubbing, No cyanosis, No edema, Normal pulses Skin: No rashes, No breakdown - Results Results: Laboratory Results WBC 16.3 x10^3/uL (4.8-10.8) H 02/15/18 09:45 RBC 4.13 10^6/uL (4.20-5.40) L 02/15/18 09:45 Hgb 12.1 g/dL (12.0-16.0) 02/15/18 09:45 Hct 36.2 % (37.0-47.0) L 02/15/18 09:45 MCV 87.7 fL (81.0-99.0) 02/15/18 09:45 MCH 29.3 pg (27.0-31.0) 02/15/18 09:45 MCHC 33.4 g/dL (32.0-36.0) 02/15/18 09:45 RDW 14.6 % (12.0-15.0) 02/15/18 09:45 Plt Count 202 10^3/uL (130-450) 02/15/18 09:45 MPV 8.2 fL (7.9-10.8) 02/15/18 09:45 Neut # (Auto) 14.6 10^3/uL (1.5-6.6) H 02/15/18 09:45 Lymph # (Auto) 0.9 10^3/uL (1.5-3.5) L 02/15/18 09:45 [place] # (Auto) 0.7 10^3/uL (0.0-1.0) 02/15/18 09:45 Eos # (Auto) 0.0 10^3/uL (0.0-0.7) 02/15/18 09:45 Baso # (Auto) 0.1 10^3/uL (0.0-0.1) 02/15/18 09:45 Absolute Nucleated RBC 0.01 x10^3/uL 02/15/18 09:45 Nucleated RBC % 0.0 /100WBC 02/15/18 09:45 Sodium 138 mmol/L (135-145) 02/15/18 09:45 Potassium 3.9 mmol/L (3.5-5.0) 02/15/18 09:45 Chloride 102 mmol/L (101-111) 02/15/18 09:45 Carbon Dioxide 26 mmol/L (21-32) 02/15/18 09:45 Anion Gap 10.0 (6-13) 02/15/18 09:45 BUN 38 mg/dL (6-20) H 02/15/18 09:45 Creatinine 1.5 mg/dL (0.4-1.0) H 02/15/18 09:45 Estimated GFR (MDRD) 33 (>89) L 02/15/18 09:45 Glucose 107 mg/dL (70-100) H 02/15/18 09:45 Lactic Acid 0.9 mmol/L (0.5-2.2) 02/15/18 09:58 Calcium 8.9 mg/dL (8.5-10.3) 02/15/18 09:45 Total Bilirubin 0.6 mg/dL (0.2-1.0) 02/15/18 09:45 AST 17 IU/L (10-42) 02/15/18 09:45 ALT 14 IU/L (10-60) 02/15/18 09:45 Alkaline Phosphatase 79 IU/L (42-121) 02/15/18 09:45 Troponin I 0.95 ng/mL (<0.49) H* 02/15/18 12:23 Total Protein 7.5 g/dL (6.7-8.2) 02/15/18 09:45 Albumin 4.0 g/dL (3.2-5.5) 02/15/18 09:45 Globulin 3.5 g/dL (2.1-4.2) 02/15/18 09:45 Albumin/Globulin Ratio 1.1 (1.0-2.2) 02/15/18 09:45 Lipase 42 U/L (22-51) 02/15/18 09:45 Urine Color YELLOW 02/15/18 10:10 Urine Clarity CLEAR (CLEAR) 02/15/18 10:10 Urine pH 6.5 PH (5.0-7.5) 02/15/18 10:10 Ur Specific [place] 1.015 (1.002-1.030) 02/15/18 10:10 Urine Protein NEGATIVE mg/dL (NEGATIVE) 02/15/18 10:10 Urine Glucose (UA) NEGATIVE mg/dL (NEGATIVE) 02/15/18 10:10 Urine Ketones NEGATIVE mg/dL (NEGATIVE) 02/15/18 10:10 Urine Occult Blood NEGATIVE (NEGATIVE) 02/15/18 10:10 Urine Nitrite NEGATIVE (NEGATIVE) 02/15/18 10:10 Urine Bilirubin NEGATIVE (NEGATIVE) 02/15/18 10:10 Urine Urobilinogen 0.2 (NORMAL) E.U./dL (NORMAL) 02/15/18 10:10 Ur Leukocyte Esterase NEGATIVE (NEGATIVE) 02/15/18 10:10 Ur Microscopic Review NOT INDICATED 02/15/18 10:10 Urine Culture Comments NOT INDICATED 02/15/18 10:10 - Procedures Procedures: Procedures CATARAC PHACOEMULS/ASPIR (03/04/13) INSERT LENS AT CATAR EXT (03/04/13) ABX Reporting Has patient been on IV antibiotics over the past 48 hours?: No Current Medications - Current Medications Current Medications: Active Medications Generic Name Dose Route Start Last Admin Trade Name Freq PRN Reason Stop Dose Admin Atropine Sulfate 1 - 4 drops 02/15/18 13:53 Isopto Atropine 1% Ophth Drops SL Q2H PRN Excessive secretions Bacitracin 1 packet 02/17/18 21:00 Bacitracin TOP BID BALTA Carboxymethylcellulose 1 drops 02/15/18 13:53 02/17/18 03:12 Refresh 1% Ophth Drops EACHEYE 1 drops QID PRN Administration Dry Eye Lorazepam 1 mg 02/15/18 13:53 Ativan Inj (Vial) IVP Q6H PRN Anxiety/Agitation Morphine Sulfate 2 mg 02/15/18 13:53 Morphine (Carpuject) IVP Q2HR PRN Pain or Shortness of air Ondansetron HCl 4 mg 02/15/18 13:53 Zofran Inj IVP Q8H PRN Nausea / Vomiting Prochlorperazine Maleate 25 mg 02/15/18 13:53 Compazine Supp [place] TID PRN Nausea / Vomiting Tolterodine [Detrol LA] 4 mg PO DAILY 08/02/12 Furosemide 40 mg PO DAILY 02/15/18 Lovastatin 40 mg PO QPM 02/15/18 Oxybutynin [Ditropan] 5 mg PO BID 02/15/18
[2018-02-17] MEDS: BACITRACIN OINT TOP SCH ×2 (13:05→21:02)
[2018-02-17] MEDS: LORazepam 2 MG/ML VIAL IVP PRN (17:47)
[2018-02-17] MEDS ORDERED: BACITRACIN OINT TOP SCH (21:00)
[2018-02-18] MEDS: BACITRACIN OINT TOP SCH ×2 (11:04→22:07)
--- NOTE | 2018-02-18 14:27 | PROVIDER PROGRESS NOTE ---
Assessment/Plan - Problem List (1) Cerebrovascular accident (CVA) Qualifiers: CVA mechanism: unspecified Qualified Code(s): I63.9 - Cerebral infarction, unspecified Assessment/Plan: Patient presented to the emergency department with right facial droop, right- sided weakness and right hemineglect. The patient also had expressive aphasia. Clinically the patient has had a left-sided stroke. Patient's CT head and CT angiogram head and neck did not show any acute infarct or large vessel occlusion. 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 Patient evaluated by PT and was able to stand but kept falling to the right side. 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 Patient's lab work revealed an elevated troponin of 0.85. Repeat troponin was 0.95 just 2 hours later. The patient appears to have had a non-ST elevation WA in the setting of a catastrophic stroke. The patient does not have acute ischemic changes on her EKG therefore it appears likely that the patient's stroke is causing a supply demand type II myocardial infarction. The patient is unable to make any decisions due to expressive aphasia and patient's daughter was at bedside. The patient's daughter expressed that the patient would not want to be transferred to higher level of care and would want comfort measures only. She did not want any further intervention or imaging studies or lab tests to be performed. Due to patient's ongoing stroke it would not be appropriate to give her a heparin drip or Lovenox for anticoagulation. The patient may benefit from aspirin but given the acute stroke she would not necessarily benefit from metoprolol as we would allow for permissive hypertension. The patient may also benefit from high-dose statin however the family has decided that the patient will be comfort care measures. Comfort care Hospice tomorrow (3) Hypertension Conclusion/Plan: Patient has history of hypertension but given acute stroke we would allow for permissive hypertension. At this point patient is comfort care and we will not restart any antihypertensive medications even once the patient's beyond 48 hours after the stroke. Hospice consulted Vitals prn Comfort care Qualifiers: Hypertension type: essential hypertension Qualified Code(s): I10 - Essential (primary) hypertension (4) Normal pressure hydrocephalus Conclusion/Plan: The patient has a history of normal pressure hydrocephalus and has a intraventricular shunt. It does not appear that the patient's presenting symptoms are due to dysfunction in the intraventricular shunt as the patient's CT and CT angiogram show that the intraventricular shunt appears to be functioning normally. For further evaluation the patient would require an MRI which the patient's daughter states the patient would not desire given that she has had a catastrophic stroke and the findings would not change anything at this time. Comfort care Hospice tomorrow (5) ARTURO (acute kidney injury) Conclusion/Plan: The patient does have acute kidney injury with a creatinine of 1.5. This is likely secondary to low flow state stroke and acute WA. Patient was given IV fluids in the emergency department and continued with IVFs. Will stop fluids given she is comfort care and going to be hospice tomorrow - Current Meds Current Meds: Current Medications Generic Name Dose Route Start Last Admin Trade Name Rioq PRN Reason Stop Dose Admin Bacitracin 1 packet 02/17/18 13:00 02/18/18 11:04 Bacitracin TOP 1 packet BID BALTA Administration Carboxymethylcellulose 1 drops 02/15/18 13:53 02/17/18 17:54 Refresh 1% Ophth Drops EACHEYE 1 drops QID PRN Administration Dry Eye Lorazepam 1 mg 02/15/18 13:53 02/17/18 17:47 Ativan Inj (Vial) IVP 1 mg Q6H PRN Administration Anxiety/Agitation - Lab Result Lab results reviewed: Yes Fish Bone Diagrams: 02/15/18 09:45 02/15/18 09:45 - EKG Results EKG Interpreted Independently: Yes - Diagnostic Imaging Results Diagnostic Imaging Results: Final report reviewed - Additional Planning Condition/Complexity: Guarded Plan Discussed with:: Family Time Spent: 15-30 minutes Subjective - Subjective Patient Reports: Other (Patient has expressive aphasia, sleeping this morning and appears comfortable) Nursing Reports: No Complaints Objective Vital Signs: Vital Signs - 24 hr 12/25/18 12/26/18 14:56 08:52 Temperature 36.9 C Heart Rate [ 103 H 105 H Brachial] Respiratory 20 20 Rate Blood Pressure 155/81 H 179/90 H [Right Brachial artery] O2 Saturation 96 98 Oxygen O2 Source Room air I&O (Last 24 Hrs): Intake and Output Totals x24h 02/16/18 02/17/18 02/18/18 23:59 23:59 23:59 Intake Total 459 Output Total 125 0 Balance 334 0 General: Other (Sleeping with expressive aphasia, right facial droop and right hemineglect) HEENT: Atraumatic, PERRLA, EOMI, Other (Dry mucus membranes) Neck: Supple, No JVD, No thyromegaly, +2 carotid pulse wo bruit, No LAD Lymphatic: no adenopathy Neuro: Other (Sleeping, expressive aphasia, facial droop, right hemineglect) Cardiovascular: Regular rate, Normal S1, Normal S2, No murmurs Respiratory: Chest non-tender, No respiratory distress, Breath sounds nml Abdomen: Normal bowel sounds, Soft, No tenderness, No hepatospenomegaly Extremities: No clubbing, No cyanosis, No edema, Normal pulses Skin: No rashes, No breakdown - Results Results: Laboratory Results WBC 16.3 x10^3/uL (4.8-10.8) H 02/15/18 09:45 RBC 4.13 10^6/uL (4.20-5.40) L 02/15/18 09:45 Hgb 12.1 g/dL (12.0-16.0) 02/15/18 09:45 Hct 36.2 % (37.0-47.0) L 02/15/18 09:45 MCV 87.7 fL (81.0-99.0) 02/15/18 09:45 MCH 29.3 pg (27.0-31.0) 02/15/18 09:45 MCHC 33.4 g/dL (32.0-36.0) 02/15/18 09:45 RDW 14.6 % (12.0-15.0) 02/15/18 09:45 Plt Count 202 10^3/uL (130-450) 02/15/18 09:45 MPV 8.2 fL (7.9-10.8) 02/15/18 09:45 Neut # (Auto) 14.6 10^3/uL (1.5-6.6) H 02/15/18 09:45 Lymph # (Auto) 0.9 10^3/uL (1.5-3.5) L 02/15/18 09:45 Frio # (Auto) 0.7 10^3/uL (0.0-1.0) 02/15/18 09:45 Eos # (Auto) 0.0 10^3/uL (0.0-0.7) 02/15/18 09:45 Baso # (Auto) 0.1 10^3/uL (0.0-0.1) 02/15/18 09:45 Absolute Nucleated RBC 0.01 x10^3/uL 02/15/18 09:45 Nucleated RBC % 0.0 /100WBC 02/15/18 09:45 Sodium 138 mmol/L (135-145) 02/15/18 09:45 Potassium 3.9 mmol/L (3.5-5.0) 02/15/18 09:45 Chloride 102 mmol/L (101-111) 02/15/18 09:45 Carbon Dioxide 26 mmol/L (21-32) 02/15/18 09:45 Anion Gap 10.0 (6-13) 02/15/18 09:45 BUN 38 mg/dL (6-20) H 02/15/18 09:45 Creatinine 1.5 mg/dL (0.4-1.0) H 02/15/18 09:45 Estimated GFR (MDRD) 33 (>89) L 02/15/18 09:45 Glucose 107 mg/dL (70-100) H 02/15/18 09:45 Lactic Acid 0.9 mmol/L (0.5-2.2) 02/15/18 09:58 Calcium 8.9 mg/dL (8.5-10.3) 02/15/18 09:45 Total Bilirubin 0.6 mg/dL (0.2-1.0) 02/15/18 09:45 AST 17 IU/L (10-42) 02/15/18 09:45 ALT 14 IU/L (10-60) 02/15/18 09:45 Alkaline Phosphatase 79 IU/L (42-121) 02/15/18 09:45 Troponin I 0.95 ng/mL (<0.49) H* 02/15/18 12:23 Total Protein 7.5 g/dL (6.7-8.2) 02/15/18 09:45 Albumin 4.0 g/dL (3.2-5.5) 02/15/18 09:45 Globulin 3.5 g/dL (2.1-4.2) 02/15/18 09:45 Albumin/Globulin Ratio 1.1 (1.0-2.2) 02/15/18 09:45 Lipase 42 U/L (22-51) 02/15/18 09:45 Urine Color YELLOW 02/15/18 10:10 Urine Clarity CLEAR (CLEAR) 02/15/18 10:10 Urine pH 6.5 PH (5.0-7.5) 02/15/18 10:10 Ur Specific [place] 1.015 (1.002-1.030) 02/15/18 10:10 Urine Protein NEGATIVE mg/dL (NEGATIVE) 02/15/18 10:10 Urine Glucose (UA) NEGATIVE mg/dL (NEGATIVE) 02/15/18 10:10 Urine Ketones NEGATIVE mg/dL (NEGATIVE) 02/15/18 10:10 Urine Occult Blood NEGATIVE (NEGATIVE) 02/15/18 10:10 Urine Nitrite NEGATIVE (NEGATIVE) 02/15/18 10:10 Urine Bilirubin NEGATIVE (NEGATIVE) 02/15/18 10:10 Urine Urobilinogen 0.2 (NORMAL) E.U./dL (NORMAL) 02/15/18 10:10 Ur Leukocyte Esterase NEGATIVE (NEGATIVE) 02/15/18 10:10 Ur Microscopic Review NOT INDICATED 02/15/18 10:10 Urine Culture Comments NOT INDICATED 02/15/18 10:10 - Procedures Procedures: Procedures CATARAC PHACOEMULS/ASPIR (03/04/13) INSERT LENS AT CATAR EXT (03/04/13) ABX Reporting Has patient been on IV antibiotics over the past 48 hours?: No Current Medications - Current Medications Current Medications: Active Medications Generic Name Dose Route Start Last Admin Trade Name Freq PRN Reason Stop Dose Admin Atropine Sulfate 1 - 4 drops 02/15/18 13:53 Isopto Atropine 1% Ophth Drops SL Q2H PRN Excessive secretions Bacitracin 1 packet 02/17/18 13:00 02/18/18 11:04 Bacitracin TOP 1 packet BID BALTA Administration Carboxymethylcellulose 1 drops 02/15/18 13:53 02/17/18 17:54 Refresh 1% Ophth Drops EACHEYE 1 drops QID PRN Administration Dry Eye Lorazepam 1 mg 02/15/18 13:53 02/17/18 17:47 Ativan Inj (Vial) IVP 1 mg Q6H PRN Administration Anxiety/Agitation Morphine Sulfate 2 mg 02/15/18 13:53 Morphine (Carpuject) IVP Q2HR PRN Pain or Shortness of air Ondansetron HCl 4 mg 02/15/18 13:53 Zofran Inj IVP Q8H PRN Nausea / Vomiting Prochlorperazine Maleate 25 mg 02/15/18 13:53 Compazine Supp [place] TID PRN Nausea / Vomiting Tolterodine [Detrol LA] 4 mg PO DAILY 08/02/12 Furosemide 40 mg PO DAILY 02/15/18 Lovastatin 40 mg PO QPM 02/15/18 Oxybutynin [Ditropan] 5 mg PO BID 02/15/18
[2018-02-18 17:08] VITALS: BP 153/81
[2018-02-18] MEDS: LORazepam 2 MG/ML VIAL IVP PRN (17:15)
--- NOTE | 2018-02-19 08:00 | Discharge Plan ---
"Discharge Plan for SNF / [facility] - Discharge Plan And Transition Orders Disposition: 03 SNF DC/Xfer Condition: Poor Allergies and Adverse Reactions: Allergies Allergy/AdvReac Type Severity Reaction Status Date / Time acetaminophen [From Percocet] Allergy Intermediate Nausea Verified 12/09/12 13:08 oxycodone HCl * Allergy Intermediate Nausea Verified 12/09/12 13:08 [From Percocet] - SNF / [facility] Transition Orders Admit to (Facility): [facility] Under the care of (Name): Steven Sanchez MD and Hospice Discharge Diagnosis: 1. Cerebrovascular accident 2. Non-ST elevation myocardial infarction 3. Hypertension 4. Normal pressure hydrocephalus 5. Acute kidney injury Medicare Certification Statement: I certify that [facility] care is medically necessary on a continuing basis for any of the conditions for which she/he is receiving care during hospitalization. Notify PCP of admission and forward orders to primary provider for signature. Weight on admission and: Monthly Other Notification Orders: Call PCP immediately if patient develops dyspnea, chest pain/tightness or edema. House Bowel Program: Yes Additional Bowel Program Orders: If no BM after 2 days, nurse may give M.O.M. 30ml PO PRN and/or ducolax Supp 1 MT and/or BHAVESH 250mg P.O., and/or senna 1-2 tabs PO. On day 3 nurse may give repeat above order until residents constipation is resolved. Annual Influenza Vaccine (between Oct 25 and May 24): No Two-step PPD per [facility] [phone] or approved exception documents: No Treatments & Other Orders: Comfort Care. Hospice Care Oxygen Orders: None Lab Tests or X-ray Orders: None Medication Orders: PLEASE REFER TO THE DISCHARGE MEDICATION LIST. Insulin Orders?: No - Medications New Prescriptions: LORazepam [Lorazepam] 1 mg SL Q1HR #20 tablet Morphine Sulfate [Morphine Sulf Oral (Roxanol)] 10 mg SL Q1H PRN #30 ml PRN Reason: Pain/Dyspnea - Diet Type: Nothing by mouth May have monthly special meal: No - Therapies | Activity Activity: Activity as Tolerated Assistance Devices: Wheelchair Follow Up: Hospice to admit patient"
--- NOTE | 2018-02-19 08:20 | DISCHARGE SUMMARY ---
Discharge Summary Admit Date: 02/15/18 Discharge Date: 02/19/18 Discharging Provider: Atul Garcia MD Primary Care Provider: Jace Cohen Code Status: Do Not Attempt Resuscitation Condition at Discharge: Poor Discharge Disposition: 03 SNF DC/Xfer Discharge Facility Name: [facility] - DIAGNOSES Admission Diagnoses: 1. Cerebrovascular accident 2. Non-ST elevation myocardial infarction 3. Hypertension 4. Normal pressure hydrocephalus 5. Acute kidney injury Discharge Diagnoses with Status of Each Condition: 1. Cerebrovascular accident: Guarded 2. Non-ST elevation myocardial infarction: Guarded 3. Hypertension: Stable 4. Normal pressure hydrocephalus: Guarded 5. Acute kidney injury: Stable - HPI History of Present Illness: Patient is an 87-year-old female with past medical history significant for hypertension, hyperlipidemia, Normal pressure hydrocephalus status post ventricular shunt, urinary incontinence and osteoarthritis status post total knee replacement who presents to the emergency department after being found unresponsive at her assisted living facility. The patient lives at [facility] and according to her daughter he usually goes to bed at around 8 or 8:30 PM. This morning her and her did not show up for breakfast at 8 AM which they do every day. This alarmed the staff at the assisted living facility so they went to investigate. They found the patient on the floor in her bedroom. She was unresponsive therefore they called 911. The patient was in her pajamas and the daughter states that she usually gets into her pajamas around 8 or 830. The patient lives with her demented who could not provide any history as to what it happened to the patient nor was he even aware that she was lying on the bedroom floor. The patient's son had seen the patient the day prior to this and the patient was in her normal state of health. The son states that she was complaining of difficulty hearing but she has chronic hearing loss and has been too stubborn to get a hearing aid. He states other than that she had no other complaints and did not seem abnormal in any way. The patient is unable to pr ovide any history secondary to aphasia. On presentation to the emergency department the patient was afebrile, tachycardic, hypertensive and saturating well on room air. On examination the patient was found to have a severe right facial droop, with right-sided weakness and left hemineglect. The patient also had aphasia. Patient underwent routine lab work which revealed a leukocytosis of 16.3, acute kidney injury with a creatinine of 1.5 and BUN of 38, an elevated troponin of 0.85 and a negative urine analysis. The patient's troponin was repeated and it was 0.95. The patient's EKG did not show any acute ischemic changes. The patient underwent a CT of her head which showed generalized age-related cortical atrophic changes without evidence of acute intracranial abnormality. The patient also underwent a CT angiogram of her head and neck which showed mild degree of small vessel ischemia with no evidence of large vessel ischemia. Given the patient's non-ST elevation IN and clinical cerebrovascular accident the emergency room physician spoke with the patient's daughter about transfer to a higher level of care. The patient's daughter expressed that the patient had lived a long and good life and that she would not want aggressive treatment for a catastrophic stroke like this. She elected to keep the patient at [facility] and make her comfort care measures. She stated if the patient did show improvement over the next 24 hours that they would consider just medical management of the patient without any interventions. The patient's daughter did not want any further imaging or labs. She did agree to physical therapy and speech therapy assessments. The patient did have slight improvement in her mentation after getting IV fluids but continued to be unable to speak, unable to follow commands and had continued right-sided weakness and right facial droop. The patient was admitted to the [facility] for further evaluation. - HOSPITAL COURSE Hospital Course: Patient presented to the emergency department with right facial droop, right- sided weakness and right hemineglect. The patient also had expressive aphasia. Clinically the patient has had a left-sided stroke. Patient's CT head and CT angiogram head and neck did not show any acute infarct or large vessel occlusion. 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 The patient also had a NSTEMI with troponin of 0.95. Patients family did not want any aggressive treatment as per patients wishes prior to event. Patients POLST stated she wanted to be DNR. Given severity of patients stroke family did not want any further work up with imaging or labs. They did not want any treatment with medications other than medications to keep her comfortable. Patient evaluated by PT and was able to stand but kept falling to the right side. She is receptive and follows commands but has expressive aphasia. 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 - ALLERGIES Allergies/Adverse Reactions: Allergies Allergy/AdvReac Type Severity Reaction Status Date / Time acetaminophen [From Percocet] Allergy Intermediate Nausea Verified 12/09/12 13:08 oxycodone HCl * Allergy Intermediate Nausea Verified 12/09/12 13:08 [From Percocet] - MEDICATIONS Home Medications: Ambulatory Orders Medication Instructions Recorded Confirmed Atropine 1% Ophth Drops [Isopto 1 - 4 drops SL Q2H PRN bottle 02/19/18 Atropine 1% Ophth Drops] LORazepam [Lorazepam] 1 mg SL Q1HR #20 tablet 02/19/18 Morphine Sulfate [Morphine Sulf 10 mg SL Q1H PRN #30 ml 02/19/18 Oral (Roxanol)] - PHYSICAL EXAM AT DISCHARGE General Appearance: positive: Other (Expressive aphasia, able to follow commands, right brent negelct. ) Eyes Bilateral: positive: Normal inspection, PERRL, EOMI, No lid inflammation, Conjunctivae nml, No scleral icterus ENT: positive: ENT inspection nml, Pharynx nml, Dry mucous membranes. negative: Purulent nasal drainage, Pharyngeal erythema, Oral lesions Neck: positive: Nml inspection, Thyroid nml, No JVD, Trachea midline. negative: Thyromegaly, Lymphadenopathy (R), Lymphadenopathy (L), Carotid bruit, Tracheal deviation Respiratory: positive: Chest non-tender, No respiratory distress, Breath sounds nml. negative: Wheezes, Rales, Rhonchi Cardiovascular: positive: No murmur, No gallop, Tachycardia Peripheral Pulses: positive: 2+ Abdomen: positive: Non-tender, No organomegaly, Nml bowel sounds, No distention. negative: Guarding, Rebound, Hepatomegaly Back: positive: Nml inspection. negative: CVA tenderness (R), CVA tenderness (L) Skin: positive: Color nml, No rash, Warm, Other (Abrasion of her inner thigh ) Extremities: positive: Nml appearance, No pedal edema Neurologic/Psychiatric: positive: Weakness (Right sided weakness with right bernt-neglect), Facial droop (Right facial droop ), Slurred/abnml speech (Expressive aphasia) - LABS Result Diagrams: 02/15/18 09:45 02/15/18 09:45 Other Lab Results: Laboratory Results WBC 16.3 x10^3/uL (4.8-10.8) H 02/15/18 09:45 RBC 4.13 10^6/uL (4.20-5.40) L 02/15/18 09:45 Hgb 12.1 g/dL (12.0-16.0) 02/15/18 09:45 Hct 36.2 % (37.0-47.0) L 02/15/18 09:45 MCV 87.7 fL (81.0-99.0) 02/15/18 09:45 MCH 29.3 pg (27.0-31.0) 02/15/18 09:45 MCHC 33.4 g/dL (32.0-36.0) 02/15/18 09:45 RDW 14.6 % (12.0-15.0) 02/15/18 09:45 Plt Count 202 10^3/uL (130-450) 02/15/18 09:45 MPV 8.2 fL (7.9-10.8) 02/15/18 09:45 Neut # (Auto) 14.6 10^3/uL (1.5-6.6) H 02/15/18 09:45 Lymph # (Auto) 0.9 10^3/uL (1.5-3.5) L 02/15/18 09:45 Wagoner # (Auto) 0.7 10^3/uL (0.0-1.0) 02/15/18 09:45 Eos # (Auto) 0.0 10^3/uL (0.0-0.7) 02/15/18 09:45 Baso # (Auto) 0.1 10^3/uL (0.0-0.1) 02/15/18 09:45 Absolute Nucleated RBC 0.01 x10^3/uL 02/15/18 09:45 Nucleated RBC % 0.0 /100WBC 02/15/18 09:45 Sodium 138 mmol/L (135-145) 12/23/18 09:45 Potassium 3.9 mmol/L (3.5-5.0) 02/15/18 09:45 Chloride 102 mmol/L (101-111) 02/15/18 09:45 Carbon Dioxide 26 mmol/L (21-32) 02/15/18 09:45 Anion Gap 10.0 (6-13) 02/15/18 09:45 BUN 38 mg/dL (6-20) H 02/15/18 09:45 Creatinine 1.5 mg/dL (0.4-1.0) H 02/15/18 09:45 Estimated GFR (MDRD) 33 (>89) L 02/15/18 09:45 Glucose 107 mg/dL (70-100) H 02/15/18 09:45 Lactic Acid 0.9 mmol/L (0.5-2.2) 02/15/18 09:58 Calcium 8.9 mg/dL (8.5-10.3) 02/15/18 09:45 Total Bilirubin 0.6 mg/dL (0.2-1.0) 02/15/18 09:45 AST 17 IU/L (10-42) 02/15/18 09:45 ALT 14 IU/L (10-60) 02/15/18 09:45 Alkaline Phosphatase 79 IU/L (42-121) 02/15/18 09:45 Troponin I 0.95 ng/mL (<0.49) H* 02/15/18 12:23 Total Protein 7.5 g/dL (6.7-8.2) 02/15/18 09:45 Albumin 4.0 g/dL (3.2-5.5) 02/15/18 09:45 Globulin 3.5 g/dL (2.1-4.2) 02/15/18 09:45 Albumin/Globulin Ratio 1.1 (1.0-2.2) 02/15/18 09:45 Lipase 42 U/L (22-51) 02/15/18 09:45 Urine Color YELLOW 02/15/18 10:10 Urine Clarity CLEAR (CLEAR) 02/15/18 10:10 Urine pH 6.5 PH (5.0-7.5) 02/15/18 10:10 Ur Specific [place] 1.015 (1.002-1.030) 02/15/18 10:10 Urine Protein NEGATIVE mg/dL (NEGATIVE) 02/15/18 10:10 Urine Glucose (UA) NEGATIVE mg/dL (NEGATIVE) 02/15/18 10:10 Urine Ketones NEGATIVE mg/dL (NEGATIVE) 02/15/18 10:10 Urine Occult Blood NEGATIVE (NEGATIVE) 02/15/18 10:10 Urine Nitrite NEGATIVE (NEGATIVE) 02/15/18 10:10 Urine Bilirubin NEGATIVE (NEGATIVE) 02/15/18 10:10 Urine Urobilinogen 0.2 (NORMAL) E.U./dL (NORMAL) 02/15/18 10:10 Ur Leukocyte Esterase NEGATIVE (NEGATIVE) 02/15/18 10:10 Ur Microscopic Review NOT INDICATED 02/15/18 10:10 Urine Culture Comments NOT INDICATED 02/15/18 10:10 - DIAGNOSTIC IMAGING Diagnostic Imaging Results: Final report reviewed Diagnostic Imaging Results Comments: EXAM: [id number] CT/HEADWO ([id number]) Reason: R brent/aphasia Procedure Date: 02/15/2018 Accession Number: [id number] / [id number] Procedure: CT - Head W/O CPT Code: FULL RESULT: EXAM: CT HEAD EXAM DATE: 02/15/2018 11:00 AM. CLINICAL HISTORY: R brent/aphasia. COMPARISON: 02/15/2018. TECHNIQUE: Multiaxial CT images were obtained from the foramen magnum to the vertex. Reformats: Sagittal and coronal. IV contrast: None. In accordance with CT protocol optimization, one or more of the following dose reduction techniques were utilized for this exam: automated exposure control, adjustment of mA and/or KV based on patient size, or use of iterative reconstructive technique. FINDINGS: Parenchyma: No intraparenchymal hemorrhage. No evidence of mass, midline shift, or CT findings of acute infarction. Sanchez-white differentiation is distinct. Diffuse chronic microangiopathic white matter changes are evident. Vascular calcifications in the visualized vertebral arteries and bilateral M1 segments appears unchanged compared to prior. Extraaxial Spaces: Normal for age. No subdural or epidural collections identified. Ventricles: Persistent dilation of the lateral, third, and fourth ventricles, unchanged compared to prior. For example, the third ventricle measures 17 mm width, unchanged. Ventricular dilation is somewhat out of proportion to sulcal dilation which suggests underlying normal pressure hydrocephalus. Stable position of the right parietal approach ventricular catheter. Sinuses and orbits: Imaged paranasal sinuses, orbits, and mastoids show no significant abnormality. Bones: No evidence of fracture or calvarial defect. Other: None. IMPRESSION: 1. Generalized age-related cortical atrophic changes without evidence of acute intracranial abnormality. If concern for infarction persists, MRI could be obtained for additional evaluation. 2. Stable position of ventricular catheter with stable dilation of the ventricles. EXAM: [id number] CT/HEADANG ([id number]) Reason: right brent/aphasia Procedure Date: 02/15/2018 Accession Number: [id number] / [id number] Procedure: CT - Head Angio CPT Code: FULL RESULT: IMPRESSION: 1. The images are degraded by motion. 2. There is an unchanged ventriculostomy catheter entering the right temporal approach with the tip terminating in the body of the left lateral ventricle. There is unchanged ventriculomegaly. If the patient has persistent symptoms and additional imaging is desired it could be obtained with MRI of the brain without contrast as deemed clinically appropriate. 3. There is a mild degree of chronic small vessel ischemia. 4. There is an enhancing lesion of the left thyroid lobe measuring 17 mm in the long axis of (114, 2). This can be further characterized as an outpatient with thyroid ultrasound. It could represent benign or neoplastic etiologies. 5. There is soft and calcific plaquing of the distal left common carotid artery, carotid bulb and proximal extracranial left internal carotid artery producing multiple stenoses measuring up to 40-50% using NASCET criteria. 6. There is narrowing suggested at the origin of the left superior cerebellar artery producing approximately 50% stenosis. 7. There is calcific plaquing of the left M1 segment of the left middle cerebral artery producing a 25-50% stenosis. There is a punctate focus of calcific plaquing or evidence of branch of the left middle cerebral artery reducing a 50% to slightly greater stenosis. 8. There is narrowing within the proximal left A2 segment of the left anterior cerebral artery producing up to a 50% stenosis. There is a punctate focus of calcific plaquing in the right A2 segment producing a 25% stenosis. There is calcific plaquing of the distal right A2 segment producing between 50-70% stenosis. IMPRESSION: 1. The images are degraded by motion. 2. There is an unchanged ventriculostomy catheter entering the right temporal approach with the tip terminating in the body of the left lateral ventricle. There is unchanged ventriculomegaly. If the patient has persistent symptoms and additional imaging is desired it could be obtained with MRI of the brain without contrast as deemed clinically appropriate. 3. There is a mild degree of chronic small vessel ischemia. 4. There is an enhancing lesion of the left thyroid lobe measuring 17 mm in the long axis of (114, 2). This can be further characterized as an outpatient with thyroid ultrasound. It could represent benign or neoplastic etiologies. 5. There is soft and calcific plaquing of the distal left common carotid artery, carotid bulb and proximal extracranial left internal carotid artery producing multiple stenoses measuring up to 40-50% using NASCET criteria. 6. There is narrowing suggested at the origin of the left superior cerebellar artery producing approximately 50% stenosis. 7. There is calcific plaquing of the left M1 segment of the left middle cerebral artery producing a 25-50% stenosis. There is a punctate focus of calcific plaquing or evidence of branch of the left middle cerebral artery reducing a 50% to slightly greater stenosis. 8. There is narrowing within the proximal left A2 segment of the left anterior cerebral artery producing up to a 50% stenosis. There is a punctate focus of calcific plaquing in the right A2 segment producing a 25% stenosis. There is calcific plaquing of the distal right A2 segment producing between 50-70% stenosis. EXAM: [id number] CT/NECKANG ([id number]) Reason: R brent/aphasia Procedure Date: 02/15/2018 Accession Number: [id number] / [id number] Procedure: CT - Neck Angio CPT Code: FULL RESULT: IMPRESSION: 1. The images are degraded by motion. 2. There is an unchanged ventriculostomy catheter entering the right temporal approach with the tip terminating in the body of the left lateral ventricle. There is unchanged ventriculomegaly. If the patient has persistent symptoms and additional imaging is desired it could be obtained with MRI of the brain without contrast as deemed clinically appropriate. 3. There is a mild degree of chronic small vessel ischemia. 4. There is an enhancing lesion of the left thyroid lobe measuring 17 mm in the long axis of (114, 2). This can be further characterized as an outpatient with thyroid ultrasound. It could represent benign or neoplastic etiologies. 5. There is soft and calcific plaquing of the distal left common carotid artery, carotid bulb and proximal extracranial left internal carotid artery producing multiple stenoses measuring up to 40-50% using NASCET criteria. 6. There is narrowing suggested at the origin of the left superior cerebellar artery producing approximately 50% stenosis. 7. There is calcific plaquing of the left M1 segment of the left middle cerebral artery producing a 25-50% stenosis. There is a punctate focus of calcific plaquing or evidence of branch of the left middle cerebral artery reducing a 50% to slightly greater stenosis. 8. There is narrowing within the proximal left A2 segment of the left anterior cerebral artery producing up to a 50% stenosis. There is a punctate focus of calcific plaquing in the right A2 segment producing a 25% stenosis. There is calcific plaquing of the distal right A2 segment producing between 50-70% stenosis. IMPRESSION: 1. The images are degraded by motion. 2. There is an unchanged ventriculostomy catheter entering the right temporal approach with the tip terminating in the body of the left lateral ventricle. There is unchanged ventriculomegaly. If the patient has persistent symptoms and additional imaging is desired it could be obtained with MRI of the brain without contrast as deemed clinically appropriate. 3. There is a mild degree of chronic small vessel ischemia. 4. There is an enhancing lesion of the left thyroid lobe measuring 17 mm in the long axis of (114, 2). This can be further characterized as an outpatient with thyroid ultrasound. It could represent benign or neoplastic etiologies. 5. There is soft and calcific plaquing of the distal left common carotid artery, carotid bulb and proximal extracranial left internal carotid artery producing multiple stenoses measuring up to 40-50% using NASCET criteria. 6. There is narrowing suggested at the origin of the left superior cerebellar artery producing approximately 50% stenosis. 7. There is calcific plaquing of the left M1 segment of the left middle cerebral artery producing a 25-50% stenosis. There is a punctate focus of calcific plaquing or evidence of branch of the left middle cerebral artery reducing a 50% to slightly greater stenosis. 8. There is narrowing within the proximal left A2 segment of the left anterior cerebral artery producing up to a 50% stenosis. There is a punctate focus of calcific plaquing in the right A2 segment producing a 25% stenosis. There is calcific plaquing of the distal right A2 segment producing between 50-70% stenosis. - FOLLOW UP Follow Up: Patient discharged to [facility] with hospice care. - TIME SPENT Time Spent in Discharge (Minutes): 40
[2018-02-19] MEDS: BACITRACIN OINT TOP SCH (09:52)
== END 2018-02-19 13:15 | disposition hospice, inpatient (51) | DRG 280 ==
LOC: EDUNIT# → ED 09:34 → MS2 13:52
PROVIDERS: ADMIT Internal Medicine; ATTEND Internal Medicine
DX: I21.4 Non-ST elevation (NSTEMI) myocardial infarction (principal); I63.9 Cerebral infarction, unspecified; G91.2 (Idiopathic) normal pressure hydrocephalus; I35.0 Nonrheumatic aortic (valve) stenosis; N17.9 Acute kidney failure, unspecified; G81.91 Hemiplegia, unspecified affecting right dominant side; R47.01 Aphasia; R29.810 Facial weakness; R13.10 Dysphagia, unspecified; I10 Essential (primary) hypertension; R29.712 NIHSS score 12; E78.5 Hyperlipidemia, unspecified; R32 Unspecified urinary incontinence; H91.90 Unspecified hearing loss, unspecified ear; M19.90 Unspecified osteoarthritis, unspecified site; Z51.5 Encounter for palliative care; Z66 Do not resuscitate; Z98.2 Presence of cerebrospinal fluid drainage device; Z96.659 Presence of unspecified artificial knee joint; Z79.899 Other long term (current) drug therapy
CPT/HCPCS: 36415; 70450; 70496; 70498; 80053; 81001; 81003; 83605; 83690; 84484; 85025; 87040; 87086; 93005; 96360; 96361; 99221; 99284; 99285

== ENCOUNTER 2018-02-19 13:32 | Outpatient (CLI) | payer MEDICARE, OTHER | END 2018-02-19 13:33 | disposition short-term general hospital (02) | LOC: EMS 13:32 | PROVIDERS: ATTEND Surgery | DX: I63.9 Cerebral infarction, unspecified (principal) | CPT/HCPCS: A0425; A0428 ==